=== PATIENT | male | born 1955 | race Hispanic/Latino ===

== ENCOUNTER 2016-12-10 15:10 | Inpatient (IN) | payer BC ==
[2016-12-10] MEDS ORDERED: Vancomycin 1gm in NS 250ml 1 GM/250 ML BAG IVPB STA (15:56)
[2016-12-10] MEDS ORDERED: Piperacillin/Tazobact 3.375 gm 100 ML IVPB STA (15:57)
[2016-12-10] MEDS ORDERED: Insulin Reg-MEDIUM-Coverage IV STA (15:57)
[2016-12-10] MEDS ORDERED: Sodium Chloride 0.9% 1,000 ML IV STA ×2 (15:58→16:55)
[2016-12-10] MEDS ORDERED: Insulin Regular 1 UNITS/0.01 ML ML IV STA (16:01)
[2016-12-10 16:19] LABS: ADD MANUAL DIFF? NO
--- NOTE | 2016-12-10 16:36 | ED PDOC ---
Arrival/HPI - General Chief Complaint: Abnormal Skin Integrity Time Seen by Provider: 12/10/16 15:37 Historian: Patient - History of Present Illness Narrative History of Present Illness (Text): 12/10/16 16:30 61yo morbidly obese male with PMHx of hypertension, diabetes referred to ED by Dr. Lucio for right foot cellulitis. Pt notes history of left foot ulcer. states foot became swollen, red and comfortable the past 2weeks with blister. He does not see a Inside Sales Territory Manager. Reports malaise and decrease appetite for the past few days. States he only took his Glipizide this morning, because he have had decreased appetite. He denies fever, chills, nausea, SOB, chest pain, cough , BUI, any other complaint. Past Medical History - Provider Review Nursing Documentation Reviewed: Yes - Infectious Disease Hx of Infectious Diseases: None - Tetanus Immunization Tetanus Immunization: Unknown - Cardiac Hx Cardiac Disorders: Yes Hx Hypertension: Yes - Pulmonary Hx Respiratory Disorders: No - Neurological Hx Neurological Disorder: No - HEENT Hx HEENT Disorder: No - Renal Hx Renal Disorder: No - Endocrine/Metabolic Hx Endocrine Disorders: Yes Hx Diabetes Mellitus Type 2: Yes - Hematological/Oncological Hx Blood Transfusions: No Hx Blood Transfusion Reaction: No - Integumentary Hx Dermatological Disorder: No - Musculoskeletal/Rheumatological Hx Musculoskeletal Disorders: No - Gastrointestinal Hx Gastrointestinal Disorders: No - Genitourinary/Gynecological Hx Genitourinary Disorders: No - Psychiatric Hx Psychophysiologic Disorder: No Hx Emotional Abuse: No Hx Physical Abuse: No Hx Substance Use: No - Past Surgical History Past Surgical History: No Previous - Surgical History Other/Comment: Pt has DVT in R leg with filter placement. Pt had R leg fracture with sx as well - Anesthesia Hx Anesthesia: Yes Hx Anesthesia Reactions: No Hx Malignant Hyperthermia: No - Suicidal Assessment Feels Threatened In Home Enviroment: No Family/Social History - Physician Review Nursing Documentation Reviewed: Yes Family/Social History: Unknown Family HX Smoking Status: Never Smoked Hx Substance Use: No Hx Substance Use Treatment: No Allergies/Home Meds Allergies/Adverse Reactions: Allergies No Known Allergies Allergy (Verified 12/10/16 15:14) Home Medications: Home Meds Medication Instructions Recorded Confirmed Lisinopril 5 mg PO DAILY 08/08/12 08/08/12 Carvedilol [Coreg Cr] 40 mg PO DAILY 12/10/16 12/10/16 Glimepiride [amaRYL] 4 mg PO BID 12/10/16 12/10/16 Linagliptin [Tradjenta] 5 mg PO DAILY 12/10/16 12/10/16 Vits A,C,E/Lutein/Minerals [Cvs 1 each PO DAILY 12/10/16 12/10/16 Vision Formula Tablet] Review of Systems - Physician Review All systems were reviewed & negative as marked: Yes - Review of Systems Constitutional: Normal Eyes: Normal ENT: Normal Respiratory: Normal Cardiovascular: Normal Gastrointestinal: Normal Genitourinary Male: Normal Musculoskeletal: Normal Skin: Cellulitis Neurological: Normal Endocrine: Normal Hemo/Lymphatic: Normal Psychiatric: Normal Physical Exam Vital Signs Reviewed: Yes Vital Signs Temp Pulse Resp BP Pulse Ox 12/10/16 21:11 101 H 16 125/80 98 12/10/16 18:53 98.6 F 103 H 18 122/73 94 L 12/10/16 16:34 98 H 18 101/68 97 12/10/16 15:22 98.0 F 108 H 18 99/64 L 97 Temperature: Afebrile Blood Pressure: Normal Pulse: Tachycardic Respiratory Rate: Normal Appearance: Positive for: Well-Appearing, Non-Toxic, Comfortable Pain Distress: None Mental Status: Positive for: Alert and Oriented X 3 Finger Stick Blood Glucose: 500 - Systems Exam Head: Present: Atraumatic, Normocephalic Pupils: Present: PERRL Extroacular Muscles: Present: EOMI Conjunctiva: Present: Normal Mouth: Present: Moist Mucous Membranes Neck: Present: Normal Range of Motion Respiratory/Chest: Present: Clear to Auscultation, Good Air Exchange. No: Respiratory Distress, Accessory Muscle Use Cardiovascular: Present: Regular Rate and Rhythm, Normal S1, S2. No: Murmurs Abdomen: Present: Normal Bowel Sounds. No: Tenderness, Distention, Peritoneal Signs Back: Present: Normal Inspection Upper Extremity: Present: Normal Inspection. No: Cyanosis, Edema Lower Extremity: Present: Edema (3+ pitting edema right LE), Normal ROM, Erythema, Temperature Abnormalties (Warm to touch), Other (Open blister noted on right dorsal aspect of foot and ulcer with clear margin noted on the plantar aspact). No: CALF TENDERNESS, NORMAL PULSES (Decrease pedis pulse - right foot) , Tenderness Neurological: Present: GCS=15, CN II-XII Intact, Speech Normal Skin: Present: Warm, Dry, Normal Color. No: Rashes Psychiatric: Present: Alert, Oriented x 3, Normal Insight, Normal Concentration Medical Decision Making ED Course and Treatment: 12/10/16 19:14 53yo male referred to ED by Dr. Gill for right foot cellulitis. Morbildy obese male aferbile in ED and appear hemodynamically stable. Right foot cellulitis was noted. He had leukocytosis and BS greater than 1,00. he had a gap. He was placed on IV insulin drip after a bolus and hydrated. Fixture Repairer Fabricator was notified. He saw pt and accepted pt to ICU. Case was DW Dr. Bojorquez. PT was admitted to ICU Chest xray - NAD EKG Pending Result and plan was DW both pt and the family members and they all agreed - Lab Interpretations Lab Results: 12/10/16 16:00 12/10/16 16:00 Lab Results 12/10/16 16:00: Sodium 130 L, Potassium 5.2 H, Chloride 92 L, Carbon Dioxide 17 L, Anion Gap 26 H, BUN 34 H, Creatinine 1.4, Est GFR ( Amer) > 60, Est GFR (Non-Af Amer) 51, Random Glucose 1182 H*, Calcium 10.0, Total Bilirubin 0.8 , AST 26, ALT 25, Alkaline Phosphatase 131, Total Protein 7.8, Albumin 3.8, Globulin 4.0, Albumin/Globulin Ratio 1.0 L 12/10/16 16:00: WBC 18.2 H, RBC 4.34, Hgb 12.4 L, Hct 42.6, MCV 98.2, MCH 28.6, MCHC 29.1 L, RDW 14.0, Plt Count 358, MPV 11.9 H, Gran % 89.9 H, Lymph % (Auto) 5.3 L, [place] % (Auto) 4.7, Eos % (Auto) 0.0 L, Baso % (Auto) 0.1, Gran # 16.31 H , Lymph # 1.0 L, [place] # 0.9 H, Eos # 0.0, Baso # 0.02 12/10/16 15:54: POC Glucose (mg/dL) > 500 H* - RAD Interpretation Radiology Orders: 12/10/16 15:47 CHEST PORTABLE [RAD] Stat - EKG Interpretation Interpreted by ED Physician: Yes (sinus tachy; RBB @102bpm) - Medication Orders Current Medication Orders: Heparin Sodium (Porcine) (Heparin) 5,000 units SC Q8 MALLORY PRN Reason: Protocol Last Admin: 12/10/16 23:00 Dose: 5,000 units Sodium Chloride (Sodium Chloride 0.9%) 1,000 mls @ 200 mls/hr IV .Q5H MALLORY Last Admin: 12/10/16 23:31 Dose: 200 mls/hr Meropenem 1g/NS 100mL IVPB (Meropenem 1g/Ns 100ml Ivpb) 1 gm in 100 mls @ 100 mls/hr IVPB Q8 MALLORY PRN Reason: Protocol Stop: 12/17/16 22:01 Last Admin: 12/10/16 23:00 Dose: 100 mls/hr Linezolid (Zyvox 600mg/300ml D5w) 600 mg in 300 mls @ 200 mls/hr IVPB Q12 MALLORY PRN Reason: Protocol Stop: 12/17/16 22:01 Last Admin: 12/10/16 23:30 Dose: 200 mls/hr Insulin Human Regular 100 (units/ Sodium Chloride) 100 mls @ 0 mls/hr IV .Q0M PRN; Protocol; Per Protocol PRN Reason: TITRATE PER MD ORDER Last Admin: 12/10/16 23:30 Dose: 12 ml/hr, 12 mls/hr Pantoprazole Sodium (Protonix Inj) 40 mg IVP DAILY MALLORY Discontinued Medications Sodium Chloride (Sodium Chloride 0.9%) 1,000 mls @ 999 mls/hr IV .Q1H1M STA Stop: 12/10/16 16:58 Last Admin: 12/10/16 16:43 Dose: 999 mls/hr Vancomycin HCl (Vancomycin 1gm) 1 gm in 250 mls @ 167 mls/hr IVPB STAT STA PRN Reason: Protocol Stop: 12/10/16 17:25 Last Admin: 12/10/16 18:54 Dose: 167 mls/hr Piperacillin Sod/Tazobactam Sod (Zosyn 3.375 In Ns 100ml) 100 mls @ 200 mls/hr IVPB STAT STA PRN Reason: Protocol Stop: 12/10/16 16:26 Last Admin: 12/10/16 16:43 Dose: 200 mls/hr Insulin Human Regular 100 (units/ Sodium Chloride) 100 mls @ 8 mls/hr IV .[id number] PRN; Protocol; 8 UNITS/HR PRN Reason: TITRATE PER MD ORDER Last Admin: 12/10/16 17:28 Dose: 8 units/hr, 8 mls/hr Sodium Chloride (Sodium Chloride 0.9%) 1,000 mls @ 999 mls/hr IV .Q1H1M STA Stop: 12/10/16 17:55 Last Admin: 12/10/16 17:23 Dose: 999 mls/hr Insulin Human Regular (Humulin R) 10 units IV ONCE STA PRN Reason: Protocol Stop: 12/10/16 16:02 Last Admin: 12/10/16 16:42 Dose: 10 units - Transfer of Care Pending radiology studies:: Chest xray NAD Disposition/Present on Arrival - Present on Arrival Any Indicators Present on Arrival: No History of DVT/PE: No History of Uncontrolled Diabetes: No Urinary Catheter: No History of Decub. Ulcer: Yes History Surgical Site Infection Following: None - Disposition Have Diagnosis and Disposition been Completed?: Yes Diagnosis: Cellulitis, Hyperglycemia, DKA (diabetic ketoacidoses), Obesity Disposition: HOSPITALIZED Disposition Time: 16:00 Patient Problems: Current Active Problems Problem Status Onset Cellulitis Acute DKA (diabetic ketoacidoses) Acute Hyperglycemia Acute Condition: FAIR
[2016-12-10 16:37] LABS: HEMATOCRIT 42.6 % (42.0-52.0); MEAN CELL VOLUME 98.2 fL (80.0-105.0); MEAN CORPUSCULAR HEMOGLOBIN 28.6 pg (25.0-35.0); MEAN CORPUSCULAR HGB CONC 29.1 g/dl (31.0-37.0); WHITE BLOOD COUNT 18.2 10^3/ul (4.5-11.0)
[2016-12-10 16:38] LABS: ALKALINE PHOSPHATASE 131 U/L (38-133); ALT/SGPT 25 U/L (7-56); AST/SGOT 26 U/L (15-59); BASO # 0.02 K/mm3 (0.0-2.0); BASO % 0.1 % (0.0-3.0); BILIRUBIN,TOTAL 0.8 mg/dL (0.2-1.3); BLOOD UREA NITROGEN 34 mg/dL (7-21); CARBON DIOXIDE 17 mmol/L (21-33); CHLORIDE 92 mmol/L (98-107); GFR AFRICAN-AMERICAN > 60; GRAN # 16.31 (1.4-6.5); GRAN % 89.9 % (50.0-68.0); LYMPH % 5.3 % (22.0-35.0); MEAN PLATELET VOLUME 11.9 fl (7.0-11.0); MONO # 0.9 (0.1-0.6); MONO % 4.7 % (1.0-6.0); PLATELET COUNT 358 10^3/uL (120.0-450.0); POTASSIUM 5.2 mmol/L (3.6-5.0); SODIUM 130 mmol/L (132-148); TOTAL PROTEIN 7.8 g/dL (5.8-8.3)
[2016-12-10 16:45] LABS: GLUCOSE,RANDOM 1182 mg/dL (70-110)
[2016-12-10] MEDS ORDERED: Insulin Regular 100 UNITS in Sodium Chloride 0.9% 99 ML IV PRN (16:52)
--- NOTE | 2016-12-10 17:03 | RAD ---
HISTORY: admission COMPARISON: Chest x-ray performed 08/16/12 TECHNIQUE: Chest, one view. FINDINGS: Examination limited by habitus. LUNGS: No focal consolidation. Please note that chest x-ray has limited sensitivity for the detection of pulmonary masses. PLEURA: No significant pleural effusion identified. No definite pneumothorax . CARDIOVASCULAR: Heart size appears top normal. OSSEOUS STRUCTURES: Degenerative changes. VISUALIZED UPPER ABDOMEN: Unremarkable. OTHER FINDINGS: None. IMPRESSION: No focal consolidation, significant pleural effusion, or definite pneumothorax identified.
[2016-12-10 17:12] LABS: VENOUS BLOOD GAS BASE EXCESS -8.3 mmol/L (0.0-2.0); VENOUS BLOOD PH 7.26 (7.32-7.43)
[2016-12-10] MEDS: Sodium Chloride 0.9% 1,000 ML IV SCH ×2 (18:54→23:31)
[2016-12-10 19:05] LABS: VENOUS BLOOD GAS BASE EXCESS -4.8 mmol/L (0.0-2.0); VENOUS BLOOD PH 7.32 (7.32-7.43)
[2016-12-10 19:26] LABS: BLOOD UREA NITROGEN 34 mg/dL (7-21); CALCIUM 9.5 mg/dL (8.4-10.5); CARBON DIOXIDE 20 mmol/L (21-33); CHLORIDE 99 mmol/L (98-107); GFR AFRICAN-AMERICAN > 60; POTASSIUM 4.6 mmol/L (3.6-5.0); SODIUM 133 mmol/L (132-148)
[2016-12-10 19:36] LABS: GLUCOSE,RANDOM 826 mg/dL (70-110)
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
--- NOTE | 2016-12-10 22:43 | CT ---
EXAM: CT Right Lower Extremity Without Intravenous Contrast, Foot CLINICAL HISTORY: 61 years old, male; Signs and symptoms; Cellulitis; Foot; Right; Additional info: Necrotizing fasciitis TECHNIQUE: Axial computed tomography images of the right foot without intravenous contrast. This CT exam was performed using one or more of the following dose reduction techniques: automated exposure control, adjustment of the mA and/or kV according to patient size, and/or use of iterative reconstruction technique. Coronal and sagittal reformatted images were created and reviewed. EXAM DATE/TIME: 12/10/2016 6:03 PM COMPARISON: No relevant prior studies available. FINDINGS: BONES/JOINTS: Calcaneal spurring. Bony structures appear demineralized. No acute fractures are seen. No evidence of acute dislocation. No evidence of significant lytic, destructive bony changes or aggressive periosteal reaction to suggest osteomyelitis. SOFT TISSUES: A cluster of multiple foci of soft tissue air are seen in the lateral soft tissues of the distal foot/forefoot, at the level of the fifth metatarsophalangeal joint, best seen on images 183-186 of series 2. This air extends to the skin surface, and appears located within a focal, triangular area of soft tissue density. Findings most likely represent a soft tissue ulceration associated with phlegmonous inflammation. This measures approximately 3 cm maximally. The associated air reaches to the deep soft tissues, directly abutting the fifth metatarsal head, consistent with a deep soft tissue ulceration. Marked, diffuse subcutaneous edema is seen in the right foot. There is no definite focal, measurable wall to suggest a walled off abscess. No evidence of diffuse soft tissue gas/emphysema. IMPRESSION: - Findings suspicious for a focal soft tissue ulceration associated with phlegmonous inflammation and air in the lateral soft tissues of the right forefoot, at the level of the fifth metatarsophalangeal joint. The soft tissue ulceration appears deep, with air seen extending to the level of the bone/the fifth metatarsal head. No walled off fluid collection is seen to suggest a philip abscess. No evidence of diffuse soft tissue gas. - Marked, diffuse soft tissue edema of the right foot, most likely secondary to diffuse cellulitis. - No findings to suggest osteomyelitis by CT. Note that MRI is more sensitive for detection of osteomyelitis, however. - See above for remaining findings.
[2016-12-10 22:45] LABS: VENOUS BLOOD GAS BASE EXCESS -0.8 mmol/L (0.0-2.0); VENOUS BLOOD PH 7.36 (7.32-7.43)
[2016-12-10 22:53] LABS: BLOOD UREA NITROGEN 33 mg/dL (7-21); CALCIUM 9.6 mg/dL (8.4-10.5); CARBON DIOXIDE 26 mmol/L (21-33); CHLORIDE 102 mmol/L (98-107); GFR AFRICAN-AMERICAN > 60; SODIUM 138 mmol/L (132-148)
[2016-12-10 23:00] LABS: GLUCOSE,RANDOM 584 mg/dL (70-110)
[2016-12-10] MEDS: Meropenem 1g/NS 100mL IVPB 1 GM/100 ML PIGGYBACK IVPB SCH (23:00)
--- NOTE | 2016-12-10 23:09 | CON ---
DATE: 12/10/2016 This is a 61-year-old gentleman with history of hypertension, diabetes who started having some right foot erythema about a month ago; however, it was mild and appeared to be controlled with local measures. About 3 days ago, the erythema substantially worsened overnight. It became warm and small bullae appeared on the surface. The right foot got swollen. The patient continued to try to contain the inflammation with local measures; however, it progressed. Today, patient went to his doctor, Dr. Desai, who sent patient to the Emergency Room immediately. Upon further evaluation here in the Emergency Room , the patient was found to have significant hyperglycemia and presumed diagnosis of DKA was made. The patient was started on insulin drip and 2 liters of normal saline as a bolus were given. Broad spectrum abx started PAST MEDICAL HISTORY: Hypertension, diabetes, obesity. FAMILY HISTORY: Noncontributory. The patient has never smoked. No alcohol or illicit drug abuse. MEDICATIONS AT HOME: Lisinopril, Coreg, Amaryl, Tradjenta, vitamin A, C and E. REVIEW OF SYSTEMS: Revealed 12 organ system other than mentioned in history of present illness is negative. No nausea, no vomiting, no diarrhea, no constipation. ALLERGIES: NKDA. FAMILY HISTORY: noncontributory. PHYSICAL EXAMINATION: VITAL SIGNS: Blood pressure 101/68, heart rate 98, temperature 98, oxygen saturation 97% on room air. HEAD AND NECK: Atraumatic. LUNGS: Clear to auscultation bilaterally. HEART: Regular rate and rhythm. S1, S2 normal. ABDOMEN: Soft, nontender, nondistended. MUSCULOSKELETAL: Right foot swollen, erythematous and not tender on palpation. There are some calluses present on both surfaces of the foot. SKIN: Moist. PSYCHIATRIC: The patient is alert and oriented x 3, not in distress. LABORATORY DATA: Sodium 130, potassium 5.2, chloride 92, carbon dioxide 17, BUN 34, creatinine 1.4, glucose 1182, AST 26, ALT 25. WBC 18.2, hemoglobin 12.4 , platelet count 358. VBG showed lactic acid 3.4 and pH 7.26. ASSESSMENT AND PLAN: This is a 61-year-old gentleman with severe sepsis secondary to right foot cellulitis. The patient has diabetes thus absence of pain and tenderness does not rule out possibility of deep tissue infection. I will proceed with CAT scan of the right lower extremity to rule out necrotizing fasciitis. I will proceed with a blood culture, urine culture and procalcitonin. The patient received a dose of vancomycin and I will continue with that. The patient also received a dose of Zosyn. ID consult will be requested, surgical consult will be requested. I will continue with fluid resuscitation, insulin drip. I will continue with BMP every 4 hours and Accu- Chek every 1 hour. Once anion gap closed, I will switch insulin drip to longer acting subQ formulation of insulin. I will avoid hypoglycemia. I will continue to target euvolemia, euglycemia, normothermia and oxygen saturation 90% . I will continue with deep venous thrombosis and gastrointestinal prophylaxis. I will order IgA level in case if necrotizing fasciitis or toxic shock syndrome develops which may necessitate transfusion of immunoglobulin. I will continue with deep venous thrombosis and gastrointestinal prophylaxis. ccm time 40 min Eb Clemente MD cc: [id number] TT: 12/10/2016 23:08:26 Confirmation # [id number] Dictation # [id number] MTDD
[2016-12-10] MEDS: Linezolid 600 mg in D5W 300 ml 600 MG/300 ML BAG IVPB SCH (23:30)
[2016-12-10] MEDS: Insulin Regular 100 UNITS in Sodium Chloride 0.9% 99 ML IV PRN (23:30)
[2016-12-11 00:58] VITALS: BMI 34.6
[2016-12-11] MEDS: Insulin Regular 100 UNITS in Sodium Chloride 0.9% 99 ML IV PRN ×2 (01:55→03:17)
[2016-12-11] MEDS ORDERED: Insulin Regular 100 UNITS in Sodium Chloride 0.9% 99 ML IV PRN ×2 (02:15→04:55)
[2016-12-11] MEDS ORDERED: Vancomycin 1gm in NS 250ml 1 GM/250 ML BAG IVPB SCH (03:00)
[2016-12-11] MEDS: Meropenem 1g/NS 100mL IVPB 1 GM/100 ML PIGGYBACK IVPB SCH ×2 (05:06→14:34)
[2016-12-11 06:44] LABS: ADD MANUAL DIFF? NO
[2016-12-11 06:58] LABS: VENOUS BLOOD PH 7.38 (7.32-7.43)
[2016-12-11] MEDS: Dextrose 5%/0.45% NS 1,000 ML IV SCH ×2 (07:00→14:43)
[2016-12-11 07:28] LABS: BLOOD UREA NITROGEN 28 mg/dL (7-21); CALCIUM 9.7 mg/dL (8.4-10.5); CARBON DIOXIDE 30 mmol/L (21-33); CHLORIDE 110 mmol/L (98-107); GFR AFRICAN-AMERICAN > 60; GLUCOSE,RANDOM 154 mg/dL (70-110); POTASSIUM 3.6 mmol/L (3.6-5.0); SODIUM 144 mmol/L (132-148)
[2016-12-11] MEDS ORDERED: Insulin Detemir 100 units/ml Vial (Levemir) SC SCH (08:16)
[2016-12-11] MEDS ORDERED: Insulin Detemir 100 units/ml Vial (Levemir) SC ONE ×3 (08:18→22:00)
[2016-12-11 08:34] LABS: MAGNESIUM 2.6 mg/dL (1.7-2.2); PHOSPHOROUS 2.4 mg/dL (2.5-4.5)
[2016-12-11 08:35] LABS: BASO # 0.02 K/mm3 (0.0-2.0); BASO % 0.1 % (0.0-3.0); EOS % 0.1 % (1.5-5.0); GRAN # 13.58 (1.4-6.5); GRAN % 81.8 % (50.0-68.0); LYMPH # 0.8 (1.2-3.4); MEAN CELL VOLUME 85.4 fL (80.0-105.0); MEAN CORPUSCULAR HEMOGLOBIN 28.4 pg (25.0-35.0); MEAN CORPUSCULAR HGB CONC 33.2 g/dl (31.0-37.0); MEAN PLATELET VOLUME 11.6 fl (7.0-11.0); MONO # 2.2 (0.1-0.6); PLATELET COUNT 328 10^3/uL (120.0-450.0); RED CELL DISTRIBUTION WIDTH 13.5 % (11.5-14.5); WHITE BLOOD COUNT 16.6 10^3/ul (4.5-11.0)
--- NOTE | 2016-12-11 09:38 | CP.PCM.PN ---
Subjective - Date & Time of Evaluation Date of Evaluation: 12/11/16 Time of Evaluation: 07:00 - Subjective Subjective: General Surgery Progress Note for Dr. Jennings Pt was seen and examined at bedside. No acute complaints at this time. No acute or adverse events overnight as per nursing staff. Insulin drip has been stopped and an insulin regimen has been started. Pt denies RLE pain, fever, chill, n/v. Objective - Vital Signs/Intake and Output Vital Signs (last 24 hours): Temp Pulse Resp BP Pulse Ox 98 F 88 23 139/69 89 L 12/10/16 23:00 12/11/16 07:30 12/11/16 07:30 12/11/16 07:00 12/11/16 07:30 Intake and Output: 12/11/16 12/11/16 06:59 18:59 Intake Total 201 4004 Output Total 700 Balance 201 3304 - Medications Medications: Current Medications Heparin Sodium (Porcine) (Heparin) 5,000 units SC Q8 MALLORY PRN Reason: Protocol Last Admin: 12/11/16 05:01 Dose: 5,000 units Meropenem 1g/NS 100mL IVPB (Meropenem 1g/Ns 100ml Ivpb) 1 gm in 100 mls @ 100 mls/hr IVPB Q8 MALLORY PRN Reason: Protocol Stop: 12/17/16 22:01 Last Admin: 12/11/16 05:06 Dose: 100 mls/hr Linezolid (Zyvox 600mg/300ml D5w) 600 mg in 300 mls @ 200 mls/hr IVPB Q12 MALLORY PRN Reason: Protocol Stop: 12/17/16 22:01 Last Admin: 12/10/16 23:30 Dose: 200 mls/hr Insulin Human Regular 100 (units/ Sodium Chloride) 100 mls @ 4 mls/hr IV .Q24H PRN; Protocol; Per Protocol PRN Reason: TITRATE PER MD ORDER Last Titration: 12/11/16 08:11 Dose: 5 units/hr, 5 mls/hr Dextrose/Sodium Chloride (Dextrose 5%/0.45% Ns 1000 Ml) 1,000 mls @ 150 mls/hr IV .Q6H40M MALLORY Last Admin: 12/11/16 07:00 Dose: 150 mls/hr Insulin Human Regular (Humulin R Med) 0 units SC Q6H MALLORY PRN Reason: Protocol Pantoprazole Sodium (Protonix Inj) 40 mg IVP DAILY MALLORY - Labs Labs: 12/11/16 06:30 12/11/16 06:30 - Constitutional Appears: Well, No Acute Distress - Head Exam Head Exam: ATRAUMATIC, NORMAL INSPECTION, NORMOCEPHALIC - Eye Exam Eye Exam: EOMI, Normal appearance, PERRL Pupil Exam: NORMAL ACCOMODATION, PERRL - ENT Exam ENT Exam: Mucous Membranes Moist, Normal Exam - Neck Exam Neck Exam: Full ROM, Normal Inspection. absent: Lymphadenopathy - Respiratory Exam Respiratory Exam: Clear to Ausculation Bilateral, NORMAL BREATHING PATTERN - Cardiovascular Exam Cardiovascular Exam: REGULAR RHYTHM, +S1, +S2. absent: Murmur - GI/Abdominal Exam GI & Abdominal Exam: Soft, Normal Bowel Sounds. absent: Tenderness - Extremities Exam Extremities Exam: Pedal Edema (+3 erythema, RLE ulcers ) - Neurological Exam Neurological Exam: Alert, Awake, CN II-XII Intact, Oriented x3 - Psychiatric Exam Psychiatric exam: Normal Affect, Normal Mood - Skin Skin Exam: Dry, Intact, Normal Color, Warm Assessment and Plan - Assessment and Plan (Free Text) Assessment: 61 M with DKA and RLE cellulitis - CT of the R lower extremity showed focal soft tissue ulceration with phlegmonous inflammation and air in the lateral soft tissues at the 5th metatarsophalangeal joint to the level of bone but without sign of abscess or osteomyelitis. - Podiatry Consulted, fu recs - Consider MRI, picc line for potential OM - f/u Wound Cx - IV Abx per ID, zyvox and merrem - strict glucose monitoring and control per ICU - cont medical management Seen reviewed and discussed with Attending Shereen Patel PGY-1
[2016-12-11] MEDS ORDERED: Potassium Phosphate 30 MMOLE in Dextrose 5% In Water 250 ML IVPB ONE (09:55)
[2016-12-11] MEDS: Linezolid 600 mg in D5W 300 ml 600 MG/300 ML BAG IVPB SCH ×2 (10:03→23:40)
[2016-12-11] MEDS: Insulin Reg-MEDIUM-Coverage SC SCH ×3 (10:03→23:39)
--- NOTE | 2016-12-11 10:03 | CARD ---
APPROVED REPORT EKG Measurement Heart [id number] <Conclusion> Sinus tachycardia Right bundle branch block Abnormal ECG
--- NOTE | 2016-12-11 10:20 | CP.CCUPN ---
<Melonie Mercer - Last Filed: 12/11/16 17:28> CCU Subjective - Physician Review Events Since Last Encounter (Free Text): 12/11/16 10:10 Pt s/e at bedside this AM. Patient is in the ICU for monitoring and treatment of his DKA and is also being treated for R lower leg/foot cellulitis. CT of the R lower extremity showed focal soft tissue ulceration with phlegmonous inflammation and air in the lateral soft tissues at the 5th metatarsophalangeal joint to the level of bone but without sign of abscess or osteomyelitis. Today patient's anion gap is closed and his blood sugars are well controlled. Patient reports chronic numbness in the bilateral feet. This AM patient denies any pain in the foot, fevers, chills, CP, SOB, abdominal pain, nausea, or vomiting, dysuria, hematuria, diarrhea, or constipation. Patient reports recent polyuria. Patient is very hungry and is upset he has to wait to eat food CCU Objective - Vital Signs / Intake & Output Vital Signs (Last 4 hours): Vital Signs Pulse Resp BP Pulse Ox 12/11/16 07:30 88 23 89 L 12/11/16 07:20 91 H 17 92 L 12/11/16 07:10 89 27 H 93 L 12/11/16 07:00 88 28 H 139/69 93 L 12/11/16 06:50 85 14 93 L 12/11/16 06:40 89 89 L 12/11/16 06:30 87 25 H 91 L 12/11/16 06:20 88 27 H 91 L 12/11/16 06:10 87 63 H 94 L Intake and Output (Last 8hrs): Intake & Output 12/10/16 12/11/16 12/11/16 22:59 06:59 14:59 Intake Total 201 4004 Output Total 700 Balance 201 3304 Weight 125.645 kg Intake: IV 201 2003 Right Forearm 1999 Other 1999 Output: Urine 700 Urine, Voided 700 Other: Voiding Method Urinal # Bowel Movements 0 - Physical Exam Head: Positive for: Atraumatic, Normocephalic Pupils: Positive for: PERRL Extroacular Muscles: Positive for: EOMI Conjunctiva: Positive for: Normal Mouth: Positive for: Dry Pharnyx: Positive for: Normal Nose (External): Positive for: Atraumatic. Negative for: Abrasion, Contusion Neck: Positive for: Normal Range of Motion Respiratory/Chest: Positive for: Clear to Auscultation, Good Air Exchange. Negative for: Respiratory Distress, Accessory Muscle Use Cardiovascular: Positive for: Regular Rate and Rhythm, Normal S1, S2. Negative for: Murmurs Abdomen: Positive for: Normal Bowel Sounds. Negative for: Tenderness, Distention, Peritoneal Signs Back: Positive for: Normal Inspection Upper Extremity: Positive for: Normal Inspection. Negative for: Cyanosis, Edema Lower Extremity: Positive for: Edema (3+ pitting edema right LE), Normal ROM, Erythema (extending to distal lower leg), Temperature Abnormalties (Warm to touch), Other (Several bullae of the lateral foot, several open, with an intact bullae over the dorsal surface of the base of the 5th metatarsal. ulcer with clear margin noted on the plantar aspect). Negative for: CALF TENDERNESS, NORMAL PULSES (Decrease pedis pulse - right foot), Tenderness Neurological: Positive for: GCS=15, CN II-XII Intact, Speech Normal Skin: Positive for: Warm, Dry, Normal Color. Negative for: Rashes Psychiatric: Positive for: Alert, Oriented x 3, Normal Insight, Normal Concentration - Medications Active Medications: Active Medications Generic Name Dose Route Start Last Admin Trade Name Freq PRN Reason Stop Dose Admin Heparin Sodium (Porcine) 5,000 units 12/10/16 22:00 12/11/16 05:01 Heparin SC 5,000 units Q8 MALLORY Administration Protocol Meropenem 1g/NS 100mL IVPB 1 gm in 100 mls @ 100 mls/hr 12/10/16 22:00 05:06 Meropenem 1g/Ns 100ml Ivpb IVPB 12/17/16 22:01 100 mls/hr Q8 MALLORY Administration Protocol Linezolid 600 mg in 300 mls @ 200 mls/hr 12/10/16 22:00 12/10/16 23:30 Zyvox 600mg/300ml D5w IVPB 12/17/16 22:01 200 mls/hr Q12 MALLORY Administration Protocol Insulin Human Regular 100 100 mls @ 4 mls/hr 12/11/16 04:55 12/11/16 08:11 units/ Sodium Chloride IV 5 units/hr .Q24H PRN 5 mls/hr TITRATE PER MD ORDER Titration Protocol Per Protocol Dextrose/Sodium Chloride 1,000 mls @ 150 mls/hr 12/11/16 06:00 12/11/16 07:00 Dextrose 5%/0.45% Ns 1000 Ml IV 150 mls/hr .[id number] MALLORY Administration Potassium Phosphate 30 mmole/ 260 mls @ 42.5 mls/hr 12/11/16 09:55 Dextrose IVPB 12/11/16 16:02 ONCE ONE Insulin Human Regular 0 units 12/11/16 09:30 Humulin R Med SC Q6H [facility] Protocol Pantoprazole Sodium 40 mg 12/11/16 10:00 Protonix Inj IVP DAILY MALLORY - Patient Studies Lab Studies: Lab Studies 12/11/16 12/11/16 12/11/16 Range/Units 09:48 08:08 06:57 WBC (4.5-11.0) 10^3/ul RBC (3.5-6.1) 10^6/uL Hgb (14.0-18.0) gm/dL Hct (42.0-52.0) % MCV (80.0-105.0) fL MCH (25.0-35.0) pg MCHC (31.0-37.0) g/dl RDW (11.5-14.5) % Plt Count (120.0-450.0) 10^3/uL MPV (7.0-11.0) fl Gran % (50.0-68.0) % Lymph % (Auto) (22.0-35.0) % [place] % (Auto) (1.0-6.0) % Eos % (Auto) (1.5-5.0) % Baso % (Auto) (0.0-3.0) % Gran # (1.4-6.5) Lymph # (1.2-3.4) [place] # (0.1-0.6) Eos # (0.0-0.7) Baso # (0.0-2.0) K/mm3 pO2 (30-55) mm/Hg VBG pH (7.32-7.43) VBG pCO2 (40-60) VBG HCO3 (21-28) mmol/l VBG Total CO2 (22-28) mmol.L VBG O2 Sat (Calc) (40-65) % VBG Base Excess (0.0-2.0) mmol/L VBG Potassium (3.6-5.2) mmol/L Sodium (132-148) mmol/L Chloride (98-107) mmol/L Glucose (75-110) mg/dl Lactate (0.7-2.1) mmol/L FiO2 % Potassium (3.6-5.0) mmol/L Carbon Dioxide (21-33) mmol/L Anion Gap (10-20) BUN (7-21) mg/dL Creatinine (0.5-1.4) mg/dL Est GFR ( Amer) Est GFR (Non-Af Amer) POC Glucose (mg/dL) 275 H 201 H 171 H (65-110) mg/dL Random Glucose (70-110) mg/dL Calcium (8.4-10.5) mg/dL Phosphorus (2.5-4.5) mg/dL Magnesium (1.7-2.2) mg/dL Procalcitonin (0.19-0.49) NG/ML Venous Blood Potassium (3.6-5.2) mmol/L IgA (70.0-400.0) mg/dL 12/11/16 12/11/16 12/11/16 Range/Units 06:30 06:30 06:30 WBC 16.6 H (4.5-11.0) 10^3/ul RBC 3.98 (3.5-6.1) 10^6/uL Hgb 11.3 L (14.0-18.0) gm/dL Hct 34.0 L (42.0-52.0) % MCV 85.4 (80.0-105.0) fL MCH 28.4 (25.0-35.0) pg MCHC 33.2 (31.0-37.0) g/dl RDW 13.5 (11.5-14.5) % Plt Count 328 (120.0-450.0) 10^3/uL MPV 11.6 H (7.0-11.0) fl Gran % 81.8 H (50.0-68.0) % Lymph % (Auto) 5.0 L (22.0-35.0) % [place] % (Auto) 13.0 H (1.0-6.0) % Eos % (Auto) 0.1 L (1.5-5.0) % Baso % (Auto) 0.1 (0.0-3.0) % Gran # 13.58 H (1.4-6.5) Lymph # 0.8 L (1.2-3.4) [place] # 2.2 H (0.1-0.6) Eos # 0.0 (0.0-0.7) Baso # 0.02 (0.0-2.0) K/mm3 pO2 67 H (30-55) mm/Hg VBG pH 7.38 (7.32-7.43) VBG pCO2 47.0 (40-60) VBG HCO3 27.8 (21-28) mmol/l VBG Total CO2 29.2 H (22-28) mmol.L VBG O2 Sat (Calc) 96.2 H (40-65) % VBG Base Excess 2.0 (0.0-2.0) mmol/L VBG Potassium 3.7 (3.6-5.2) mmol/L Sodium 143.0 (132-148) mmol/L Chloride 115.0 H (98-107) mmol/L Glucose 155 H (75-110) mg/dl Lactate 1.7 (0.7-2.1) mmol/L FiO2 21.0 % Potassium (3.6-5.0) mmol/L Carbon Dioxide (21-33) mmol/L Anion Gap (10-20) BUN (7-21) mg/dL Creatinine (0.5-1.4) mg/dL Est GFR ( Amer) Est GFR (Non-Af Amer) POC Glucose (mg/dL) (65-110) mg/dL Random Glucose (70-110) mg/dL Calcium (8.4-10.5) mg/dL Phosphorus 2.4 L (2.5-4.5) mg/dL Magnesium 2.6 H (1.7-2.2) mg/dL Procalcitonin (0.19-0.49) NG/ML Venous Blood Potassium 3.7 (3.6-5.2) mmol/L IgA (70.0-400.0) mg/dL 12/11/16 12/11/16 12/11/16 Range/Units 06:30 06:20 04:47 WBC (4.5-11.0) 10^3/ul RBC (3.5-6.1) 10^6/uL Hgb (14.0-18.0) gm/dL Hct (42.0-52.0) % MCV (80.0-105.0) fL MCH (25.0-35.0) pg MCHC (31.0-37.0) g/dl RDW (11.5-14.5) % Plt Count (120.0-450.0) 10^3/uL MPV (7.0-11.0) fl Gran % (50.0-68.0) % Lymph % (Auto) (22.0-35.0) % [place] % (Auto) (1.0-6.0) % Eos % (Auto) (1.5-5.0) % Baso % (Auto) (0.0-3.0) % Gran # (1.4-6.5) Lymph # (1.2-3.4) [place] # (0.1-0.6) Eos # (0.0-0.7) Baso # (0.0-2.0) K/mm3 pO2 (30-55) mm/Hg VBG pH (7.32-7.43) VBG pCO2 (40-60) VBG HCO3 (21-28) mmol/l VBG Total CO2 (22-28) mmol.L VBG O2 Sat (Calc) (40-65) % VBG Base Excess (0.0-2.0) mmol/L VBG Potassium (3.6-5.2) mmol/L Sodium 144 (132-148) mmol/L Chloride 110 H (98-107) mmol/L Glucose (75-110) mg/dl Lactate (0.7-2.1) mmol/L FiO2 % Potassium 3.6 (3.6-5.0) mmol/L Carbon Dioxide 30 (21-33) mmol/L Anion Gap 8 L (10-20) BUN 28 H (7-21) mg/dL Creatinine 1.0 (0.5-1.4) mg/dL Est GFR ( Amer) > 60 Est GFR (Non-Af Amer) > 60 POC Glucose (mg/dL) 182 H 159 H (65-110) mg/dL Random Glucose 154 H (70-110) mg/dL Calcium 9.7 (8.4-10.5) mg/dL Phosphorus (2.5-4.5) mg/dL Magnesium (1.7-2.2) mg/dL Procalcitonin (0.19-0.49) NG/ML Venous Blood Potassium (3.6-5.2) mmol/L IgA (70.0-400.0) mg/dL 12/11/16 12/11/16 12/11/16 Range/Units 04:02 03:03 01:57 WBC (4.5-11.0) 10^3/ul RBC (3.5-6.1) 10^6/uL Hgb (14.0-18.0) gm/dL Hct (42.0-52.0) % MCV (80.0-105.0) fL MCH (25.0-35.0) pg MCHC (31.0-37.0) g/dl RDW (11.5-14.5) % Plt Count (120.0-450.0) 10^3/uL MPV (7.0-11.0) fl Gran % (50.0-68.0) % Lymph % (Auto) (22.0-35.0) % [place] % (Auto) (1.0-6.0) % Eos % (Auto) (1.5-5.0) % Baso % (Auto) (0.0-3.0) % Gran # (1.4-6.5) Lymph # (1.2-3.4) [place] # (0.1-0.6) Eos # (0.0-0.7) Baso # (0.0-2.0) K/mm3 pO2 (30-55) mm/Hg VBG pH (7.32-7.43) VBG pCO2 (40-60) VBG HCO3 (21-28) mmol/l VBG Total CO2 (22-28) mmol.L VBG O2 Sat (Calc) (40-65) % VBG Base Excess (0.0-2.0) mmol/L VBG Potassium (3.6-5.2) mmol/L Sodium (132-148) mmol/L Chloride (98-107) mmol/L Glucose (75-110) mg/dl Lactate (0.7-2.1) mmol/L FiO2 % Potassium (3.6-5.0) mmol/L Carbon Dioxide (21-33) mmol/L Anion Gap (10-20) BUN (7-21) mg/dL Creatinine (0.5-1.4) mg/dL Est GFR ( Amer) Est GFR (Non-Af Amer) POC Glucose (mg/dL) 212 H 225 H 441 H* (65-110) mg/dL Random Glucose (70-110) mg/dL Calcium (8.4-10.5) mg/dL Phosphorus (2.5-4.5) mg/dL Magnesium (1.7-2.2) mg/dL Procalcitonin (0.19-0.49) NG/ML Venous Blood Potassium (3.6-5.2) mmol/L IgA (70.0-400.0) mg/dL 12/11/16 12/10/16 12/10/16 Range/Units 01:02 23:57 22:42 WBC (4.5-11.0) 10^3/ul RBC (3.5-6.1) 10^6/uL Hgb (14.0-18.0) gm/dL Hct (42.0-52.0) % MCV (80.0-105.0) fL MCH (25.0-35.0) pg MCHC (31.0-37.0) g/dl RDW (11.5-14.5) % Plt Count (120.0-450.0) 10^3/uL MPV (7.0-11.0) fl Gran % (50.0-68.0) % Lymph % (Auto) (22.0-35.0) % [place] % (Auto) (1.0-6.0) % Eos % (Auto) (1.5-5.0) % Baso % (Auto) (0.0-3.0) % Gran # (1.4-6.5) Lymph # (1.2-3.4) [place] # (0.1-0.6) Eos # (0.0-0.7) Baso # (0.0-2.0) K/mm3 pO2 21 L (30-55) mm/Hg VBG pH 7.36 (7.32-7.43) VBG pCO2 44.0 (40-60) VBG HCO3 24.9 (21-28) mmol/l VBG Total CO2 26.3 (22-28) mmol.L VBG O2 Sat (Calc) 42.3 (40-65) % VBG Base Excess -0.8 L (0.0-2.0) mmol/L VBG Potassium 4.1 (3.6-5.2) mmol/L Sodium 139.0 (132-148) mmol/L Chloride 106.0 (98-107) mmol/L Glucose 458 H* D (75-110) mg/dl Lactate 3.2 H (0.7-2.1) mmol/L FiO2 21.0 % Potassium (3.6-5.0) mmol/L Carbon Dioxide (21-33) mmol/L Anion Gap (10-20) BUN (7-21) mg/dL Creatinine (0.5-1.4) mg/dL Est GFR ( Amer) Est GFR (Non-Af Amer) POC Glucose (mg/dL) 495 H* 397 H (65-110) mg/dL Random Glucose (70-110) mg/dL Calcium (8.4-10.5) mg/dL Phosphorus (2.5-4.5) mg/dL Magnesium (1.7-2.2) mg/dL Procalcitonin (0.19-0.49) NG/ML Venous Blood Potassium 4.1 (3.6-5.2) mmol/L IgA (70.0-400.0) mg/dL 12/10/16 12/10/16 12/10/16 Range/Units 22:42 22:01 21:16 WBC (4.5-11.0) 10^3/ul RBC (3.5-6.1) 10^6/uL Hgb (14.0-18.0) gm/dL Hct (42.0-52.0) % MCV (80.0-105.0) fL MCH (25.0-35.0) pg MCHC (31.0-37.0) g/dl RDW (11.5-14.5) % Plt Count (120.0-450.0) 10^3/uL MPV (7.0-11.0) fl Gran % (50.0-68.0) % Lymph % (Auto) (22.0-35.0) % [place] % (Auto) (1.0-6.0) % Eos % (Auto) (1.5-5.0) % Baso % (Auto) (0.0-3.0) % Gran # (1.4-6.5) Lymph # (1.2-3.4) [place] # (0.1-0.6) Eos # (0.0-0.7) Baso # (0.0-2.0) K/mm3 pO2 (30-55) mm/Hg VBG pH (7.32-7.43) VBG pCO2 (40-60) VBG HCO3 (21-28) mmol/l VBG Total CO2 (22-28) mmol.L VBG O2 Sat (Calc) (40-65) % VBG Base Excess (0.0-2.0) mmol/L VBG Potassium (3.6-5.2) mmol/L Sodium 138 (132-148) mmol/L Chloride 102 (98-107) mmol/L Glucose (75-110) mg/dl Lactate (0.7-2.1) mmol/L FiO2 % Potassium 4.0 (3.6-5.0) mmol/L Carbon Dioxide 26 (21-33) mmol/L Anion Gap 14 (10-20) BUN 33 H (7-21) mg/dL Creatinine 1.2 (0.5-1.4) mg/dL Est GFR ( Amer) > 60 Est GFR (Non-Af Amer) > 60 POC Glucose (mg/dL) 500 H* > 500 H* (65-110) mg/dL Random Glucose 584 H* D (70-110) mg/dL Calcium 9.6 (8.4-10.5) mg/dL Phosphorus (2.5-4.5) mg/dL Magnesium (1.7-2.2) mg/dL Procalcitonin (0.19-0.49) NG/ML Venous Blood Potassium (3.6-5.2) mmol/L IgA (70.0-400.0) mg/dL 12/10/16 12/10/16 12/10/16 Range/Units 18:45 18:45 18:45 WBC (4.5-11.0) 10^3/ul RBC (3.5-6.1) 10^6/uL Hgb (14.0-18.0) gm/dL Hct (42.0-52.0) % MCV (80.0-105.0) fL MCH (25.0-35.0) pg MCHC (31.0-37.0) g/dl RDW (11.5-14.5) % Plt Count (120.0-450.0) 10^3/uL MPV (7.0-11.0) fl Gran % (50.0-68.0) % Lymph % (Auto) (22.0-35.0) % [place] % (Auto) (1.0-6.0) % Eos % (Auto) (1.5-5.0) % Baso % (Auto) (0.0-3.0) % Gran # (1.4-6.5) Lymph # (1.2-3.4) [place] # (0.1-0.6) Eos # (0.0-0.7) Baso # (0.0-2.0) K/mm3 pO2 52 (30-55) mm/Hg VBG pH 7.32 (7.32-7.43) VBG pCO2 41.0 (40-60) VBG HCO3 21.1 (21-28) mmol/l VBG Total CO2 22.4 (22-28) mmol.L VBG O2 Sat (Calc) 89.8 H (40-65) % VBG Base Excess -4.8 L (0.0-2.0) mmol/L VBG Potassium 4.9 (3.6-5.2) mmol/L Sodium 134.0 (132-148) mmol/L Chloride 101.0 (98-107) mmol/L Glucose > 750 H* (75-110) mg/dl Lactate 3.2 H (0.7-2.1) mmol/L FiO2 21.0 % Potassium (3.6-5.0) mmol/L Carbon Dioxide (21-33) mmol/L Anion Gap (10-20) BUN (7-21) mg/dL Creatinine (0.5-1.4) mg/dL Est GFR ( Amer) Est GFR (Non-Af Amer) POC Glucose (mg/dL) (65-110) mg/dL Random Glucose (70-110) mg/dL Calcium (8.4-10.5) mg/dL Phosphorus (2.5-4.5) mg/dL Magnesium (1.7-2.2) mg/dL Procalcitonin 2.53 H (0.19-0.49) NG/ML Venous Blood Potassium 4.9 (3.6-5.2) mmol/L IgA 462.3 H (70.0-400.0) mg/dL 12/10/16 12/10/16 Range/Units 18:45 17:04 WBC (4.5-11.0) 10^3/ul RBC (3.5-6.1) 10^6/uL Hgb (14.0-18.0) gm/dL Hct (42.0-52.0) % MCV (80.0-105.0) fL MCH (25.0-35.0) pg MCHC (31.0-37.0) g/dl RDW (11.5-14.5) % Plt Count (120.0-450.0) 10^3/uL MPV (7.0-11.0) fl Gran % (50.0-68.0) % Lymph % (Auto) (22.0-35.0) % [place] % (Auto) (1.0-6.0) % Eos % (Auto) (1.5-5.0) % Baso % (Auto) (0.0-3.0) % Gran # (1.4-6.5) Lymph # (1.2-3.4) [place] # (0.1-0.6) Eos # (0.0-0.7) Baso # (0.0-2.0) K/mm3 pO2 50 (30-55) mm/Hg VBG pH 7.26 L (7.32-7.43) VBG pCO2 41.0 (40-60) VBG HCO3 18.4 L (21-28) mmol/l VBG Total CO2 19.7 L (22-28) mmol.L VBG O2 Sat (Calc) 84.7 H (40-65) % VBG Base Excess -8.3 L (0.0-2.0) mmol/L VBG Potassium 5.1 (3.6-5.2) mmol/L Sodium 133 134.0 (132-148) mmol/L Chloride 99 95.0 L (98-107) mmol/L Glucose > 750 H* (75-110) mg/dl Lactate 3.4 H (0.7-2.1) mmol/L FiO2 21.0 % Potassium 4.6 (3.6-5.0) mmol/L Carbon Dioxide 20 L (21-33) mmol/L Anion Gap 19 (10-20) BUN 34 H (7-21) mg/dL Creatinine 1.2 (0.5-1.4) mg/dL Est GFR ( Amer) > 60 Est GFR (Non-Af Amer) > 60 POC Glucose (mg/dL) (65-110) mg/dL Random Glucose 826 H* D (70-110) mg/dL Calcium 9.5 (8.4-10.5) mg/dL Phosphorus (2.5-4.5) mg/dL Magnesium (1.7-2.2) mg/dL Procalcitonin (0.19-0.49) NG/ML Venous Blood Potassium 5.1 (3.6-5.2) mmol/L IgA (70.0-400.0) mg/dL Laboratory Results - last 24 hr 12/10/16 12/10/16 12/10/16 17:04 18:45 18:45 WBC RBC Hgb Hct MCV MCH MCHC RDW Plt Count MPV Gran % Lymph % (Auto) [place] % (Auto) Eos % (Auto) Baso % (Auto) Gran # Lymph # [place] # Eos # Baso # pO2 50 VBG pH 7.26 L VBG pCO2 41.0 VBG HCO3 18.4 L VBG Total CO2 19.7 L VBG O2 Sat (Calc) 84.7 H VBG Base Excess -8.3 L VBG Potassium 5.1 Sodium 134.0 133 Chloride 95.0 L 99 Glucose > 750 H* Lactate 3.4 H FiO2 21.0 Potassium 4.6 Carbon Dioxide 20 L Anion Gap 19 BUN 34 H Creatinine 1.2 Est GFR ( Amer) > 60 Est GFR (Non-Af Amer) > 60 POC Glucose (mg/dL) Random Glucose 826 H* D Calcium 9.5 Phosphorus Magnesium Procalcitonin Venous Blood Potassium 5.1 IgA 462.3 H 12/10/16 12/10/16 12/10/16 18:45 18:45 21:16 WBC RBC Hgb Hct MCV MCH MCHC RDW Plt Count MPV Gran % Lymph % (Auto) [place] % (Auto) Eos % (Auto) Baso % (Auto) Gran # Lymph # [place] # Eos # Baso # pO2 52 VBG pH 7.32 VBG pCO2 41.0 VBG HCO3 21.1 VBG Total CO2 22.4 VBG O2 Sat (Calc) 89.8 H VBG Base Excess -4.8 L VBG Potassium 4.9 Sodium 134.0 Chloride 101.0 Glucose > 750 H* Lactate 3.2 H FiO2 21.0 Potassium Carbon Dioxide Anion Gap BUN Creatinine Est GFR ( Amer) Est GFR (Non-Af Amer) POC Glucose (mg/dL) > 500 H* Random Glucose Calcium Phosphorus Magnesium Procalcitonin 2.53 H Venous Blood Potassium 4.9 IgA 12/10/16 12/10/16 12/10/16 22:01 22:42 22:42 WBC RBC Hgb Hct MCV MCH MCHC RDW Plt Count MPV Gran % Lymph % (Auto) [place] % (Auto) Eos % (Auto) Baso % (Auto) Gran # Lymph # [place] # Eos # Baso # pO2 21 L VBG pH 7.36 VBG pCO2 44.0 VBG HCO3 24.9 VBG Total CO2 26.3 VBG O2 Sat (Calc) 42.3 VBG Base Excess -0.8 L VBG Potassium 4.1 Sodium 138 139.0 Chloride 102 106.0 Glucose 458 H* D Lactate 3.2 H FiO2 21.0 Potassium 4.0 Carbon Dioxide 26 Anion Gap 14 BUN 33 H Creatinine 1.2 Est GFR ( Amer) > 60 Est GFR (Non-Af Amer) > 60 POC Glucose (mg/dL) 500 H* Random Glucose 584 H* D Calcium 9.6 Phosphorus Magnesium Procalcitonin Venous Blood Potassium 4.1 IgA 12/10/16 12/11/16 12/11/16 23:57 01:02 01:57 WBC RBC Hgb Hct MCV MCH MCHC RDW Plt Count MPV Gran % Lymph % (Auto) [place] % (Auto) Eos % (Auto) Baso % (Auto) Gran # Lymph # [place] # Eos # Baso # pO2 VBG pH VBG pCO2 VBG HCO3 VBG Total CO2 VBG O2 Sat (Calc) VBG Base Excess VBG Potassium Sodium Chloride Glucose Lactate FiO2 Potassium Carbon Dioxide Anion Gap BUN Creatinine Est GFR ( Amer) Est GFR (Non-Af Amer) POC Glucose (mg/dL) 397 H 495 H* 441 H* Random Glucose Calcium Phosphorus Magnesium Procalcitonin Venous Blood Potassium IgA 12/11/16 12/11/16 12/11/16 03:03 04:02 04:47 WBC RBC Hgb Hct MCV MCH MCHC RDW Plt Count MPV Gran % Lymph % (Auto) [place] % (Auto) Eos % (Auto) Baso % (Auto) Gran # Lymph # [place] # Eos # Baso # pO2 VBG pH VBG pCO2 VBG HCO3 VBG Total CO2 VBG O2 Sat (Calc) VBG Base Excess VBG Potassium Sodium Chloride Glucose Lactate FiO2 Potassium Carbon Dioxide Anion Gap BUN Creatinine Est GFR ( Amer) Est GFR (Non-Af Amer) POC Glucose (mg/dL) 225 H 212 H 159 H Random Glucose Calcium Phosphorus Magnesium Procalcitonin Venous Blood Potassium IgA 12/11/16 12/11/16 12/11/16 06:20 06:30 06:30 WBC RBC Hgb Hct MCV MCH MCHC RDW Plt Count MPV Gran % Lymph % (Auto) [place] % (Auto) Eos % (Auto) Baso % (Auto) Gran # Lymph # [place] # Eos # Baso # pO2 VBG pH VBG pCO2 VBG HCO3 VBG Total CO2 VBG O2 Sat (Calc) VBG Base Excess VBG Potassium Sodium 144 Chloride 110 H Glucose Lactate FiO2 Potassium 3.6 Carbon Dioxide 30 Anion Gap 8 L BUN 28 H Creatinine 1.0 Est GFR ( Amer) > 60 Est GFR (Non-Af Amer) > 60 POC Glucose (mg/dL) 182 H Random Glucose 154 H Calcium 9.7 Phosphorus 2.4 L Magnesium 2.6 H Procalcitonin Venous Blood Potassium IgA 12/11/16 12/11/16 12/11/16 06:30 06:30 06:57 WBC 16.6 H RBC 3.98 Hgb 11.3 L Hct 34.0 L MCV 85.4 MCH 28.4 MCHC 33.2 RDW 13.5 Plt Count 328 MPV 11.6 H Gran % 81.8 H Lymph % (Auto) 5.0 L [place] % (Auto) 13.0 H Eos % (Auto) 0.1 L Baso % (Auto) 0.1 Gran # 13.58 H Lymph # 0.8 L [place] # 2.2 H Eos # 0.0 Baso # 0.02 pO2 67 H VBG pH 7.38 VBG pCO2 47.0 VBG HCO3 27.8 VBG Total CO2 29.2 H VBG O2 Sat (Calc) 96.2 H VBG Base Excess 2.0 VBG Potassium 3.7 Sodium 143.0 Chloride 115.0 H Glucose 155 H Lactate 1.7 FiO2 21.0 Potassium Carbon Dioxide Anion Gap BUN Creatinine Est GFR ( Amer) Est GFR (Non-Af Amer) POC Glucose (mg/dL) 171 H Random Glucose Calcium Phosphorus Magnesium Procalcitonin Venous Blood Potassium 3.7 IgA 12/11/16 12/11/16 08:08 09:48 WBC RBC Hgb Hct MCV MCH MCHC RDW Plt Count MPV Gran % Lymph % (Auto) [place] % (Auto) Eos % (Auto) Baso % (Auto) Gran # Lymph # [place] # Eos # Baso # pO2 VBG pH VBG pCO2 VBG HCO3 VBG Total CO2 VBG O2 Sat (Calc) VBG Base Excess VBG Potassium Sodium Chloride Glucose Lactate FiO2 Potassium Carbon Dioxide Anion Gap BUN Creatinine Est GFR ( Amer) Est GFR (Non-Af Amer) POC Glucose (mg/dL) 201 H 275 H Random Glucose Calcium Phosphorus Magnesium Procalcitonin Venous Blood Potassium IgA EKG/Cardiology Studies: Cardiology / EKG Studies 12/10/16 19:14 EKG [ELECTROCARDIOGRAM] Stat Comment: Reason For Exam: r/o dysrhytmia Fingerstick Blood Sugar Results: 201 Review of Systems - Review of Systems All systems: reviewed and no additional remarkable complaints except (as per HPI ) - EENT Eyes: absent: Change in Vision - Cardiovascular Cardiovascular: As Per HPI - Respiratory Respiratory: As Per HPI - Gastrointestinal Gastrointestinal: As Per HPI - Genitourinary Genitourinary: absent: Dysuria, Flank Pain, Hematuria, Urinary Urgency - Musculoskeletal Musculoskeletal: UNREMARKABLE - Integumentary Integumentary: As Per HPI - Neurological Neurological: Numbness. absent: Focal Weakness, Lack of Coordination - Psychiatric Psychiatric: UNREMARKABLE - Endocrine Endocrine: Polydipsia, Polyuria. absent: Palpitations, Polyphagia Assessment/Plan - Assessment and Plan (Free Text) Assessment: 61M with diabetes with poor medication compliance for several days who presented to the ICU with DKA and right foot cellulitis and subcutaneous gas Neuro: Chronic bilateral feet numbness/tingling Normal strength, decreased sensation BL feet up to the distal lower leg Continue to monitor Cardio: HR, BP stable, no complaints RRR, no murmurs, s1/s2 Continue to monitor Pulm: No cough, no SOB CTAB continue to monitor Supplement with O2 as needed to keep SaO2>94% GI: nausea and vomiting resolved Abominal exam benign NPO pending possible surgical intervention for cellulitis Continue to monitor : strict I&O's Endo: Anion gap closed, glucose: 159 Transition off of insulin drip to levemir, RISS medium protocol Evening dose of levemir to be adjusted by primary depending on insulin needs throughout the day Continue regular accuchecks Nephro: K: 3.6, supplemented Cr 1.0 UOP adequate Continue to monitor ID: afebrile since ICU admit procalcitonin 2.53, lactate 3.2 yesterday WBC: 16.6 down from 18.2 ID following, continue antibiotic therapy per their recommendations Continue to monitor CBC MSK: Cellulitis with blisters on right foot, 4+ pitting edema RLE CT R LE: focal soft tissue ulceration with phlegmonous inflammation and air in the later soft tissue at the 5th metatarophalangea joint to the level of bone, no abscess or osteomyelitis Surgery consulted, follow up recs Podiatry consulted, follow up recs Dispo: continue to monitor vitals in the ICU, if stable and successfully transitioned off the insulin drip transfer to med/surg Patient examined and discussed with Dr. Bryn Mercer, PGY1 <Eb Clemente - Last Filed: 12/11/16 19:15> CCU Objective - Vital Signs / Intake & Output Vital Signs (Last 4 hours): Vital Signs Temp Pulse Resp BP Pulse Ox 12/11/16 16:00 99.2 F 92 H 18 140/81 96 12/11/16 15:46 98.8 F 88 20 133/88 95 Intake and Output (Last 8hrs): Intake & Output 12/11/16 12/11/16 12/11/16 06:59 14:59 22:59 Intake Total 201 5193 0 Output Total 1150 Balance 201 4043 0 Weight 277 lb Intake: IV 201 3193 0 Left Forearm 9 Right Forearm 3175 Other 2000 Output: Urine 1150 Urine, Voided 700 urinal 450 Other: Voiding Method Urinal # Voids urinal 2 # Bowel Movements 0 - Medications Active Medications: Active Medications Generic Name Dose Route Start Last Admin Trade Name Freq PRN Reason Stop Dose Admin Heparin Sodium (Porcine) 5,000 units 12/10/16 22:00 12/11/16 14:34 Heparin SC 5,000 units Q8 MALLORY Administration Protocol Meropenem 1g/NS 100mL IVPB 1 gm in 100 mls @ 100 mls/hr 12/10/16 22:00 14:34 Meropenem 1g/Ns 100ml Ivpb IVPB 12/17/16 22:01 100 mls/hr Q8 MALLORY Administration Protocol Linezolid 600 mg in 300 mls @ 200 mls/hr 12/10/16 22:00 12/11/16 10:03 Zyvox 600mg/300ml D5w IVPB 12/17/16 22:01 200 mls/hr Q12 MALLORY Administration Protocol Dextrose/Sodium Chloride 1,000 mls @ 150 mls/hr 12/11/16 06:00 12/11/16 14:43 Dextrose 5%/0.45% Ns 1000 Ml IV 150 mls/hr .[id number] MALLORY Administration Insulin Detemir 30 unit 12/11/16 22:00 Levemir SC 12/11/16 22:01 ONCE ONE Insulin Human Regular 0 units 12/11/16 09:30 12/11/16 15:29 Humulin R Med SC 7 units Q6H MALLORY Administration Protocol Pantoprazole Sodium 40 mg 12/11/16 10:00 12/11/16 10:03 Protonix Inj IVP 40 mg DAILY MALLORY Administration - Patient Studies Lab Studies: Lab Studies 12/11/16 12/11/16 12/11/16 Range/Units 15:11 11:36 09:48 WBC (4.5-11.0) 10^3/ul RBC (3.5-6.1) 10^6/uL Hgb (14.0-18.0) gm/dL Hct (42.0-52.0) % MCV (80.0-105.0) fL MCH (25.0-35.0) pg MCHC (31.0-37.0) g/dl RDW (11.5-14.5) % Plt Count (120.0-450.0) 10^3/uL MPV (7.0-11.0) fl Gran % (50.0-68.0) % Lymph % (Auto) (22.0-35.0) % [place] % (Auto) (1.0-6.0) % Eos % (Auto) (1.5-5.0) % Baso % (Auto) (0.0-3.0) % Gran # (1.4-6.5) Lymph # (1.2-3.4) [place] # (0.1-0.6) Eos # (0.0-0.7) Baso # (0.0-2.0) K/mm3 pO2 (30-55) mm/Hg VBG pH (7.32-7.43) VBG pCO2 (40-60) VBG HCO3 (21-28) mmol/l VBG Total CO2 (22-28) mmol.L VBG O2 Sat (Calc) (40-65) % VBG Base Excess (0.0-2.0) mmol/L VBG Potassium (3.6-5.2) mmol/L Glucose (75-110) mg/dl Lactate (0.7-2.1) mmol/L FiO2 % Sodium (132-148) mmol/L Potassium (3.6-5.0) mmol/L Chloride (98-107) mmol/L Carbon Dioxide (21-33) mmol/L Anion Gap (10-20) BUN (7-21) mg/dL Creatinine (0.5-1.4) mg/dL Est GFR ( Amer) Est GFR (Non-Af Amer) POC Glucose (mg/dL) 304 H 301 H 275 H (65-110) mg/dL Random Glucose (70-110) mg/dL Calcium (8.4-10.5) mg/dL Phosphorus (2.5-4.5) mg/dL Magnesium (1.7-2.2) mg/dL Procalcitonin (0.19-0.49) NG/ML Venous Blood Potassium (3.6-5.2) mmol/L IgA (70.0-400.0) mg/dL 12/11/16 12/11/16 12/11/16 Range/Units 08:08 06:57 06:30 WBC (4.5-11.0) 10^3/ul RBC (3.5-6.1) 10^6/uL Hgb (14.0-18.0) gm/dL Hct (42.0-52.0) % MCV (80.0-105.0) fL MCH (25.0-35.0) pg MCHC (31.0-37.0) g/dl RDW (11.5-14.5) % Plt Count (120.0-450.0) 10^3/uL MPV (7.0-11.0) fl Gran % (50.0-68.0) % Lymph % (Auto) (22.0-35.0) % [place] % (Auto) (1.0-6.0) % Eos % (Auto) (1.5-5.0) % Baso % (Auto) (0.0-3.0) % Gran # (1.4-6.5) Lymph # (1.2-3.4) [place] # (0.1-0.6) Eos # (0.0-0.7) Baso # (0.0-2.0) K/mm3 pO2 67 H (30-55) mm/Hg VBG pH 7.38 (7.32-7.43) VBG pCO2 47.0 (40-60) VBG HCO3 27.8 (21-28) mmol/l VBG Total CO2 29.2 H (22-28) mmol.L VBG O2 Sat (Calc) 96.2 H (40-65) % VBG Base Excess 2.0 (0.0-2.0) mmol/L VBG Potassium 3.7 (3.6-5.2) mmol/L Glucose 155 H (75-110) mg/dl Lactate 1.7 (0.7-2.1) mmol/L FiO2 21.0 % Sodium 143.0 (132-148) mmol/L Potassium (3.6-5.0) mmol/L Chloride 115.0 H (98-107) mmol/L Carbon Dioxide (21-33) mmol/L Anion Gap (10-20) BUN (7-21) mg/dL Creatinine (0.5-1.4) mg/dL Est GFR ( Amer) Est GFR (Non-Af Amer) POC Glucose (mg/dL) 201 H 171 H (65-110) mg/dL Random Glucose (70-110) mg/dL Calcium (8.4-10.5) mg/dL Phosphorus (2.5-4.5) mg/dL Magnesium (1.7-2.2) mg/dL Procalcitonin (0.19-0.49) NG/ML Venous Blood Potassium 3.7 (3.6-5.2) mmol/L IgA (70.0-400.0) mg/dL 12/11/16 12/11/16 12/11/16 Range/Units 06:30 06:30 06:30 WBC 16.6 H (4.5-11.0) 10^3/ul RBC 3.98 (3.5-6.1) 10^6/uL Hgb 11.3 L (14.0-18.0) gm/dL Hct 34.0 L (42.0-52.0) % MCV 85.4 (80.0-105.0) fL MCH 28.4 (25.0-35.0) pg MCHC 33.2 (31.0-37.0) g/dl RDW 13.5 (11.5-14.5) % Plt Count 328 (120.0-450.0) 10^3/uL MPV 11.6 H (7.0-11.0) fl Gran % 81.8 H (50.0-68.0) % Lymph % (Auto) 5.0 L (22.0-35.0) % [place] % (Auto) 13.0 H (1.0-6.0) % Eos % (Auto) 0.1 L (1.5-5.0) % Baso % (Auto) 0.1 (0.0-3.0) % Gran # 13.58 H (1.4-6.5) Lymph # 0.8 L (1.2-3.4) [place] # 2.2 H (0.1-0.6) Eos # 0.0 (0.0-0.7) Baso # 0.02 (0.0-2.0) K/mm3 pO2 (30-55) mm/Hg VBG pH (7.32-7.43) VBG pCO2 (40-60) VBG HCO3 (21-28) mmol/l VBG Total CO2 (22-28) mmol.L VBG O2 Sat (Calc) (40-65) % VBG Base Excess (0.0-2.0) mmol/L VBG Potassium (3.6-5.2) mmol/L Glucose (75-110) mg/dl Lactate (0.7-2.1) mmol/L FiO2 % Sodium 144 (132-148) mmol/L Potassium 3.6 (3.6-5.0) mmol/L Chloride 110 H (98-107) mmol/L Carbon Dioxide 30 (21-33) mmol/L Anion Gap 8 L (10-20) BUN 28 H (7-21) mg/dL Creatinine 1.0 (0.5-1.4) mg/dL Est GFR ( Amer) > 60 Est GFR (Non-Af Amer) > 60 POC Glucose (mg/dL) (65-110) mg/dL Random Glucose 154 H (70-110) mg/dL Calcium 9.7 (8.4-10.5) mg/dL Phosphorus 2.4 L (2.5-4.5) mg/dL Magnesium 2.6 H (1.7-2.2) mg/dL Procalcitonin (0.19-0.49) NG/ML Venous Blood Potassium (3.6-5.2) mmol/L IgA (70.0-400.0) mg/dL 12/11/16 12/11/16 12/11/16 Range/Units 06:20 04:47 04:02 WBC (4.5-11.0) 10^3/ul RBC (3.5-6.1) 10^6/uL Hgb (14.0-18.0) gm/dL Hct (42.0-52.0) % MCV (80.0-105.0) fL MCH (25.0-35.0) pg MCHC (31.0-37.0) g/dl RDW (11.5-14.5) % Plt Count (120.0-450.0) 10^3/uL MPV (7.0-11.0) fl Gran % (50.0-68.0) % Lymph % (Auto) (22.0-35.0) % [place] % (Auto) (1.0-6.0) % Eos % (Auto) (1.5-5.0) % Baso % (Auto) (0.0-3.0) % Gran # (1.4-6.5) Lymph # (1.2-3.4) [place] # (0.1-0.6) Eos # (0.0-0.7) Baso # (0.0-2.0) K/mm3 pO2 (30-55) mm/Hg VBG pH (7.32-7.43) VBG pCO2 (40-60) VBG HCO3 (21-28) mmol/l VBG Total CO2 (22-28) mmol.L VBG O2 Sat (Calc) (40-65) % VBG Base Excess (0.0-2.0) mmol/L VBG Potassium (3.6-5.2) mmol/L Glucose (75-110) mg/dl Lactate (0.7-2.1) mmol/L FiO2 % Sodium (132-148) mmol/L Potassium (3.6-5.0) mmol/L Chloride (98-107) mmol/L Carbon Dioxide (21-33) mmol/L Anion Gap (10-20) BUN (7-21) mg/dL Creatinine (0.5-1.4) mg/dL Est GFR ( Amer) Est GFR (Non-Af Amer) POC Glucose (mg/dL) 182 H 159 H 212 H (65-110) mg/dL Random Glucose (70-110) mg/dL Calcium (8.4-10.5) mg/dL Phosphorus (2.5-4.5) mg/dL Magnesium (1.7-2.2) mg/dL Procalcitonin (0.19-0.49) NG/ML Venous Blood Potassium (3.6-5.2) mmol/L IgA (70.0-400.0) mg/dL 12/11/16 12/11/16 12/11/16 Range/Units 03:03 01:57 01:02 WBC (4.5-11.0) 10^3/ul RBC (3.5-6.1) 10^6/uL Hgb (14.0-18.0) gm/dL Hct (42.0-52.0) % MCV (80.0-105.0) fL MCH (25.0-35.0) pg MCHC (31.0-37.0) g/dl RDW (11.5-14.5) % Plt Count (120.0-450.0) 10^3/uL MPV (7.0-11.0) fl Gran % (50.0-68.0) % Lymph % (Auto) (22.0-35.0) % [place] % (Auto) (1.0-6.0) % Eos % (Auto) (1.5-5.0) % Baso % (Auto) (0.0-3.0) % Gran # (1.4-6.5) Lymph # (1.2-3.4) [place] # (0.1-0.6) Eos # (0.0-0.7) Baso # (0.0-2.0) K/mm3 pO2 (30-55) mm/Hg VBG pH (7.32-7.43) VBG pCO2 (40-60) VBG HCO3 (21-28) mmol/l VBG Total CO2 (22-28) mmol.L VBG O2 Sat (Calc) (40-65) % VBG Base Excess (0.0-2.0) mmol/L VBG Potassium (3.6-5.2) mmol/L Glucose (75-110) mg/dl Lactate (0.7-2.1) mmol/L FiO2 % Sodium (132-148) mmol/L Potassium (3.6-5.0) mmol/L Chloride (98-107) mmol/L Carbon Dioxide (21-33) mmol/L Anion Gap (10-20) BUN (7-21) mg/dL Creatinine (0.5-1.4) mg/dL Est GFR ( Amer) Est GFR (Non-Af Amer) POC Glucose (mg/dL) 225 H 441 H* 495 H* (65-110) mg/dL Random Glucose (70-110) mg/dL Calcium (8.4-10.5) mg/dL Phosphorus (2.5-4.5) mg/dL Magnesium (1.7-2.2) mg/dL Procalcitonin (0.19-0.49) NG/ML Venous Blood Potassium (3.6-5.2) mmol/L IgA (70.0-400.0) mg/dL 12/10/16 12/10/16 12/10/16 Range/Units 23:57 22:42 22:42 WBC (4.5-11.0) 10^3/ul RBC (3.5-6.1) 10^6/uL Hgb (14.0-18.0) gm/dL Hct (42.0-52.0) % MCV (80.0-105.0) fL MCH (25.0-35.0) pg MCHC (31.0-37.0) g/dl RDW (11.5-14.5) % Plt Count (120.0-450.0) 10^3/uL MPV (7.0-11.0) fl Gran % (50.0-68.0) % Lymph % (Auto) (22.0-35.0) % [place] % (Auto) (1.0-6.0) % Eos % (Auto) (1.5-5.0) % Baso % (Auto) (0.0-3.0) % Gran # (1.4-6.5) Lymph # (1.2-3.4) [place] # (0.1-0.6) Eos # (0.0-0.7) Baso # (0.0-2.0) K/mm3 pO2 21 L (30-55) mm/Hg VBG pH 7.36 (7.32-7.43) VBG pCO2 44.0 (40-60) VBG HCO3 24.9 (21-28) mmol/l VBG Total CO2 26.3 (22-28) mmol.L VBG O2 Sat (Calc) 42.3 (40-65) % VBG Base Excess -0.8 L (0.0-2.0) mmol/L VBG Potassium 4.1 (3.6-5.2) mmol/L Glucose 458 H* D (75-110) mg/dl Lactate 3.2 H (0.7-2.1) mmol/L FiO2 21.0 % Sodium 139.0 138 (132-148) mmol/L Potassium 4.0 (3.6-5.0) mmol/L Chloride 106.0 102 (98-107) mmol/L Carbon Dioxide 26 (21-33) mmol/L Anion Gap 14 (10-20) BUN 33 H (7-21) mg/dL Creatinine 1.2 (0.5-1.4) mg/dL Est GFR ( Amer) > 60 Est GFR (Non-Af Amer) > 60 POC Glucose (mg/dL) 397 H (65-110) mg/dL Random Glucose 584 H* D (70-110) mg/dL Calcium 9.6 (8.4-10.5) mg/dL Phosphorus (2.5-4.5) mg/dL Magnesium (1.7-2.2) mg/dL Procalcitonin (0.19-0.49) NG/ML Venous Blood Potassium 4.1 (3.6-5.2) mmol/L IgA (70.0-400.0) mg/dL 12/10/16 12/10/16 12/10/16 Range/Units 22:01 21:16 18:45 WBC (4.5-11.0) 10^3/ul RBC (3.5-6.1) 10^6/uL Hgb (14.0-18.0) gm/dL Hct (42.0-52.0) % MCV (80.0-105.0) fL MCH (25.0-35.0) pg MCHC (31.0-37.0) g/dl RDW (11.5-14.5) % Plt Count (120.0-450.0) 10^3/uL MPV (7.0-11.0) fl Gran % (50.0-68.0) % Lymph % (Auto) (22.0-35.0) % [place] % (Auto) (1.0-6.0) % Eos % (Auto) (1.5-5.0) % Baso % (Auto) (0.0-3.0) % Gran # (1.4-6.5) Lymph # (1.2-3.4) [place] # (0.1-0.6) Eos # (0.0-0.7) Baso # (0.0-2.0) K/mm3 pO2 (30-55) mm/Hg VBG pH (7.32-7.43) VBG pCO2 (40-60) VBG HCO3 (21-28) mmol/l VBG Total CO2 (22-28) mmol.L VBG O2 Sat (Calc) (40-65) % VBG Base Excess (0.0-2.0) mmol/L VBG Potassium (3.6-5.2) mmol/L Glucose (75-110) mg/dl Lactate (0.7-2.1) mmol/L FiO2 % Sodium (132-148) mmol/L Potassium (3.6-5.0) mmol/L Chloride (98-107) mmol/L Carbon Dioxide (21-33) mmol/L Anion Gap (10-20) BUN (7-21) mg/dL Creatinine (0.5-1.4) mg/dL Est GFR ( Amer) Est GFR (Non-Af Amer) POC Glucose (mg/dL) 500 H* > 500 H* (65-110) mg/dL Random Glucose (70-110) mg/dL Calcium (8.4-10.5) mg/dL Phosphorus (2.5-4.5) mg/dL Magnesium (1.7-2.2) mg/dL Procalcitonin 2.53 H (0.19-0.49) NG/ML Venous Blood Potassium (3.6-5.2) mmol/L IgA (70.0-400.0) mg/dL 12/10/16 12/10/16 Range/Units 18:45 18:45 WBC (4.5-11.0) 10^3/ul RBC (3.5-6.1) 10^6/uL Hgb (14.0-18.0) gm/dL Hct (42.0-52.0) % MCV (80.0-105.0) fL MCH (25.0-35.0) pg MCHC (31.0-37.0) g/dl RDW (11.5-14.5) % Plt Count (120.0-450.0) 10^3/uL MPV (7.0-11.0) fl Gran % (50.0-68.0) % Lymph % (Auto) (22.0-35.0) % [place] % (Auto) (1.0-6.0) % Eos % (Auto) (1.5-5.0) % Baso % (Auto) (0.0-3.0) % Gran # (1.4-6.5) Lymph # (1.2-3.4) [place] # (0.1-0.6) Eos # (0.0-0.7) Baso # (0.0-2.0) K/mm3 pO2 (30-55) mm/Hg VBG pH (7.32-7.43) VBG pCO2 (40-60) VBG HCO3 (21-28) mmol/l VBG Total CO2 (22-28) mmol.L VBG O2 Sat (Calc) (40-65) % VBG Base Excess (0.0-2.0) mmol/L VBG Potassium (3.6-5.2) mmol/L Glucose (75-110) mg/dl Lactate (0.7-2.1) mmol/L FiO2 % Sodium 133 (132-148) mmol/L Potassium 4.6 (3.6-5.0) mmol/L Chloride 99 (98-107) mmol/L Carbon Dioxide 20 L (21-33) mmol/L Anion Gap 19 (10-20) BUN 34 H (7-21) mg/dL Creatinine 1.2 (0.5-1.4) mg/dL Est GFR ( Amer) > 60 Est GFR (Non-Af Amer) > 60 POC Glucose (mg/dL) (65-110) mg/dL Random Glucose 826 H* D (70-110) mg/dL Calcium 9.5 (8.4-10.5) mg/dL Phosphorus (2.5-4.5) mg/dL Magnesium (1.7-2.2) mg/dL Procalcitonin (0.19-0.49) NG/ML Venous Blood Potassium (3.6-5.2) mmol/L IgA 462.3 H (70.0-400.0) mg/dL Laboratory Results - last 24 hr 12/10/16 12/10/16 12/10/16 18:45 18:45 18:45 WBC RBC Hgb Hct MCV MCH MCHC RDW Plt Count MPV Gran % Lymph % (Auto) [place] % (Auto) Eos % (Auto) Baso % (Auto) Gran # Lymph # [place] # Eos # Baso # pO2 VBG pH VBG pCO2 VBG HCO3 VBG Total CO2 VBG O2 Sat (Calc) VBG Base Excess VBG Potassium Glucose Lactate FiO2 Sodium 133 Potassium 4.6 Chloride 99 Carbon Dioxide 20 L Anion Gap 19 BUN 34 H Creatinine 1.2 Est GFR ( Amer) > 60 Est GFR (Non-Af Amer) > 60 POC Glucose (mg/dL) Random Glucose 826 H* D Calcium 9.5 Phosphorus Magnesium Procalcitonin 2.53 H Venous Blood Potassium IgA 462.3 H 12/10/16 12/10/16 12/10/16 21:16 22:01 22:42 WBC RBC Hgb Hct MCV MCH MCHC RDW Plt Count MPV Gran % Lymph % (Auto) [place] % (Auto) Eos % (Auto) Baso % (Auto) Gran # Lymph # [place] # Eos # Baso # pO2 VBG pH VBG pCO2 VBG HCO3 VBG Total CO2 VBG O2 Sat (Calc) VBG Base Excess VBG Potassium Glucose Lactate FiO2 Sodium 138 Potassium 4.0 Chloride 102 Carbon Dioxide 26 Anion Gap 14 BUN 33 H Creatinine 1.2 Est GFR ( Amer) > 60 Est GFR (Non-Af Amer) > 60 POC Glucose (mg/dL) > 500 H* 500 H* Random Glucose 584 H* D Calcium 9.6 Phosphorus Magnesium Procalcitonin Venous Blood Potassium IgA 12/10/16 12/10/16 12/11/16 22:42 23:57 01:02 WBC RBC Hgb Hct MCV MCH MCHC RDW Plt Count MPV Gran % Lymph % (Auto) [place] % (Auto) Eos % (Auto) Baso % (Auto) Gran # Lymph # [place] # Eos # Baso # pO2 21 L VBG pH 7.36 VBG pCO2 44.0 VBG HCO3 24.9 VBG Total CO2 26.3 VBG O2 Sat (Calc) 42.3 VBG Base Excess -0.8 L VBG Potassium 4.1 Glucose 458 H* D Lactate 3.2 H FiO2 21.0 Sodium 139.0 Potassium Chloride 106.0 Carbon Dioxide Anion Gap BUN Creatinine Est GFR ( Amer) Est GFR (Non-Af Amer) POC Glucose (mg/dL) 397 H 495 H* Random Glucose Calcium Phosphorus Magnesium Procalcitonin Venous Blood Potassium 4.1 IgA 12/11/16 12/11/16 12/11/16 01:57 03:03 04:02 WBC RBC Hgb Hct MCV MCH MCHC RDW Plt Count MPV Gran % Lymph % (Auto) [place] % (Auto) Eos % (Auto) Baso % (Auto) Gran # Lymph # [place] # Eos # Baso # pO2 VBG pH VBG pCO2 VBG HCO3 VBG Total CO2 VBG O2 Sat (Calc) VBG Base Excess VBG Potassium Glucose Lactate FiO2 Sodium Potassium Chloride Carbon Dioxide Anion Gap BUN Creatinine Est GFR ( Amer) Est GFR (Non-Af Amer) POC Glucose (mg/dL) 441 H* 225 H 212 H Random Glucose Calcium Phosphorus Magnesium Procalcitonin Venous Blood Potassium IgA 12/11/16 12/11/16 12/11/16 04:47 06:20 06:30 WBC RBC Hgb Hct MCV MCH MCHC RDW Plt Count MPV Gran % Lymph % (Auto) [place] % (Auto) Eos % (Auto) Baso % (Auto) Gran # Lymph # [place] # Eos # Baso # pO2 VBG pH VBG pCO2 VBG HCO3 VBG Total CO2 VBG O2 Sat (Calc) VBG Base Excess VBG Potassium Glucose Lactate FiO2 Sodium 144 Potassium 3.6 Chloride 110 H Carbon Dioxide 30 Anion Gap 8 L BUN 28 H Creatinine 1.0 Est GFR ( Amer) > 60 Est GFR (Non-Af Amer) > 60 POC Glucose (mg/dL) 159 H 182 H Random Glucose 154 H Calcium 9.7 Phosphorus Magnesium Procalcitonin Venous Blood Potassium IgA 12/11/16 12/11/16 12/11/16 06:30 06:30 06:30 WBC 16.6 H RBC 3.98 Hgb 11.3 L Hct 34.0 L MCV 85.4 MCH 28.4 MCHC 33.2 RDW 13.5 Plt Count 328 MPV 11.6 H Gran % 81.8 H Lymph % (Auto) 5.0 L [place] % (Auto) 13.0 H Eos % (Auto) 0.1 L Baso % (Auto) 0.1 Gran # 13.58 H Lymph # 0.8 L [place] # 2.2 H Eos # 0.0 Baso # 0.02 pO2 67 H VBG pH 7.38 VBG pCO2 47.0 VBG HCO3 27.8 VBG Total CO2 29.2 H VBG O2 Sat (Calc) 96.2 H VBG Base Excess 2.0 VBG Potassium 3.7 Glucose 155 H Lactate 1.7 FiO2 21.0 Sodium 143.0 Potassium Chloride 115.0 H Carbon Dioxide Anion Gap BUN Creatinine Est GFR ( Amer) Est GFR (Non-Af Amer) POC Glucose (mg/dL) Random Glucose Calcium Phosphorus 2.4 L Magnesium 2.6 H Procalcitonin Venous Blood Potassium 3.7 IgA 12/11/16 12/11/16 12/11/16 06:57 08:08 09:48 WBC RBC Hgb Hct MCV MCH MCHC RDW Plt Count MPV Gran % Lymph % (Auto) [place] % (Auto) Eos % (Auto) Baso % (Auto) Gran # Lymph # [place] # Eos # Baso # pO2 VBG pH VBG pCO2 VBG HCO3 VBG Total CO2 VBG O2 Sat (Calc) VBG Base Excess VBG Potassium Glucose Lactate FiO2 Sodium Potassium Chloride Carbon Dioxide Anion Gap BUN Creatinine Est GFR ( Amer) Est GFR (Non-Af Amer) POC Glucose (mg/dL) 171 H 201 H 275 H Random Glucose Calcium Phosphorus Magnesium Procalcitonin Venous Blood Potassium IgA 12/11/16 12/11/16 11:36 15:11 WBC RBC Hgb Hct MCV MCH MCHC RDW Plt Count MPV Gran % Lymph % (Auto) [place] % (Auto) Eos % (Auto) Baso % (Auto) Gran # Lymph # [place] # Eos # Baso # pO2 VBG pH VBG pCO2 VBG HCO3 VBG Total CO2 VBG O2 Sat (Calc) VBG Base Excess VBG Potassium Glucose Lactate FiO2 Sodium Potassium Chloride Carbon Dioxide Anion Gap BUN Creatinine Est GFR ( Amer) Est GFR (Non-Af Amer) POC Glucose (mg/dL) 301 H 304 H Random Glucose Calcium Phosphorus Magnesium Procalcitonin Venous Blood Potassium IgA EKG/Cardiology Studies: Cardiology / EKG Studies 12/10/16 19:14 EKG [ELECTROCARDIOGRAM] Stat Comment: Reason For Exam: r/o dysrhytmia Critical Care Progress Note - Nutrition Nutrition: Nutrition Category Date Time Status Consistent Carbohydrate [DIET] Diets 12/11/16 Dinner Ordered Addendum Addendum: 12/11/16 19:12 patient was seen, examined and discussed at bedside with Dr. Mercer. Her note reflects my exam, assessment and plan, except as below. Meds/Labs/ONE reviewed. 61 yo male with DKA in the setting of anaerobic infection of his right foot and sepsis. AG closed, right foot looks better. Surgical and ID consult appreciated. Patient is hemodynamically and respiratory hurley stable. [facility]
[2016-12-11] MEDS ORDERED: Insulin Regular 1 UNITS/0.01 ML ML SC STA (11:59)
[2016-12-11] MEDS ORDERED: HYDROmorphone 0.5 mg/0.5 ml ISec IVP PRN ×3 (15:44→19:37)
[2016-12-11] MEDS ORDERED: Sodium Chloride 0.9% 1,000 ML IV SCH ×2 (15:45→19:45)
[2016-12-11] MEDS ORDERED: Propofol 10 mg/ml Inj (20 ML) ONE (16:13)
[2016-12-11] MEDS ORDERED: Lidocaine 1% Inj (20ml) ONE (16:13)
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
--- NOTE | 2016-12-11 18:45 | PN ---
DATE: 12/11/2016 Seen on the floor. The foot is swollen with blisters. The CAT scan suggests air in the periosteum. We will take him to the operating room urgently this evening. Raji Jennnigs MD cc: [phone] TT: 12/11/2016 18:44:52 Confirmation # [id number] Dictation # [id number]
[2016-12-11] MEDS ORDERED: Midazolam 2 MG/2 ML VIAL ONE (18:52)
--- NOTE | 2016-12-11 19:40 | PCM.SURG1 ---
Surgeon's Initial Post Op Note - Surgeon's Notes Surgeon: Dr Jennings Lockstitch Tunnel Elastic Operator: Dr Oseguera PGY2 Type of Anesthesia: General Endo Pre-Operative Diagnosis: right foot infection; sepsis Operative Findings: malum perforans ulcer. necrotic tissue w/ multiple collections of pus Post-Operative Diagnosis: as above Operation Performed: incision and drainage of right foot necrotic abscess Specimen/Specimens Removed: culture Estimated Blood Loss: EBL {In ML}: 10 Blood Products Given: N/A Drains Used: Jose (x 4) Post-Op Condition: Good Date of Surgery/Procedure: 12/11/16 Time of Surgery/Procedure: 19:39
[2016-12-11] MEDS ORDERED: HYDROmorphone 0.5 mg/0.5 ml ISec ONE (19:44)
[2016-12-12] MEDS: Insulin Reg-MEDIUM-Coverage SC SCH ×4 (03:15→21:20)
[2016-12-12] MEDS: Meropenem 1g/NS 100mL IVPB 1 GM/100 ML PIGGYBACK IVPB SCH ×3 (06:15→21:21)
--- NOTE | 2016-12-12 06:23 | CP.PCM.PN ---
Subjective - Date & Time of Evaluation Date of Evaluation: 12/12/16 Time of Evaluation: 06:19 - Subjective Subjective: Gen Sx: Dr Jennings Pt S&E. Taken to OR last night for I&D of right foot. Found to have malum perforans ulcer which progressed to a gas gangrene. Currently pt states his foot feels much better. Pain is now well controlled. Denies fevers, chills, n/ v. Tolerating regular diet. Objective - Vital Signs/Intake and Output Vital Signs (last 24 hours): Temp Pulse Resp BP Pulse Ox 98.3 F 76 3 L 121/71 98 12/11/16 20:15 12/11/16 20:15 12/11/16 20:15 12/11/16 20:15 12/11/16 20:15 Intake and Output: 12/11/16 12/12/16 18:59 06:59 Intake Total 5193 540 Output Total 1150 300 Balance 4043 240 - Medications Medications: Current Medications Heparin Sodium (Porcine) (Heparin) 5,000 units SC Q8 [facility] PRN Reason: Protocol Last Admin: 12/12/16 06:14 Dose: 5,000 units Hydromorphone HCl (Dilaudid) 0.5 mg IVP Q3H PRN PRN Reason: Pain, Mild (1-3) Meropenem 1g/NS 100mL IVPB (Meropenem 1g/Ns 100ml Ivpb) 1 gm in 100 mls @ 100 mls/hr IVPB Q8 [facility] PRN Reason: Protocol Stop: 12/17/16 22:01 Last Admin: 12/12/16 06:15 Dose: 100 mls/hr Linezolid (Zyvox 600mg/300ml D5w) 600 mg in 300 mls @ 200 mls/hr IVPB Q12 [facility] PRN Reason: Protocol Stop: 12/17/16 22:01 Last Admin: 12/11/16 23:40 Dose: 200 mls/hr Dextrose/Sodium Chloride (Dextrose 5%/0.45% Ns 1000 Ml) 1,000 mls @ 150 mls/hr IV .Q6H40M [facility] Last Admin: 12/11/16 14:43 Dose: 150 mls/hr Insulin Human Regular (Humulin R Med) 0 units SC Q6H [facility] PRN Reason: Protocol Last Admin: 12/12/16 03:15 Dose: Not Given Ondansetron HCl (Zofran Inj) 4 mg IVP ONCE PRN PRN Reason: Nausea/Vomiting Pantoprazole Sodium (Protonix Inj) 40 mg IVP DAILY [facility] Last Admin: 12/11/16 10:03 Dose: 40 mg - Labs Labs: 12/11/16 06:30 12/11/16 06:30 - Constitutional Appears: Non-toxic, No Acute Distress - Head Exam Head Exam: NORMOCEPHALIC - Respiratory Exam Respiratory Exam: absent: Accessory Muscle Use, Respiratory Distress - Cardiovascular Exam Cardiovascular Exam: REGULAR RHYTHM - GI/Abdominal Exam GI & Abdominal Exam: Soft. absent: Tenderness - Extremities Exam Additional comments: right foot in kerlex dressing; c/d/i - Neurological Exam Neurological Exam: Alert, Awake, Oriented x3 - Psychiatric Exam Psychiatric exam: Normal Affect, Normal Mood - Skin Skin Exam: Normal Color, Warm Assessment and Plan - Assessment and Plan (Free Text) Assessment: 61M with gas gangrene of the right foot Plan: cont abx as per ID will change dressing/packing tomorrow pt will likely need repeat debridement in the OR in near future can repeat CT scan if clinical situation worsens pt in need of diabetic education d/w Dr Dick Oseguera, DO, PGY2
[2016-12-12 07:32] LABS: ADD MANUAL DIFF? NO
[2016-12-12 07:42] LABS: BASO # 0.01 K/mm3 (0.0-2.0); BASO % 0.1 % (0.0-3.0); EOS % 0.2 % (1.5-5.0); GRAN # 8.63 (1.4-6.5); GRAN % 79.5 % (50.0-68.0); HEMATOCRIT 31.8 % (42.0-52.0); LYMPH # 0.7 (1.2-3.4); LYMPH % 6.5 % (22.0-35.0); MEAN CELL VOLUME 85.3 fL (80.0-105.0); MEAN CORPUSCULAR HEMOGLOBIN 28.2 pg (25.0-35.0); MEAN PLATELET VOLUME 10.8 fl (7.0-11.0); MONO # 1.5 (0.1-0.6); MONO % 13.7 % (1.0-6.0); PLATELET COUNT 269 10^3/uL (120.0-450.0); RED CELL DISTRIBUTION WIDTH 13.6 % (11.5-14.5); WHITE BLOOD COUNT 10.8 10^3/ul (4.5-11.0)
--- NOTE | 2016-12-12 09:22 | PN ---
DATE: 12/11/2016 SUBJECTIVE: The patient is a 61-year-old male who was admitted to the intensive care unit with diabe tic ketoacidosis and cellulitis of the right lower extremity with pain and swelling and gas formation seen on CAT scan of the right foot. The patient is known to have a history of non-insulin dependent diabetes mellitus and hypertension. He is also status post radiation therapy for prostate cancer. When seen today, the patient is feeling better. He is looking much better. He is not diaphoretic. He is no longer short of breath. PHYSICAL EXAMINATION: GENERAL: He is awake, alert, and oriented. CHEST: Lung sounds are clear. HEART: Sounds are regular anteriorly. He is happy with his treatment in the intensive care unit. His sugar is now down to the 150 range. He was evaluated by the surgeon and is anticipating going to the operating room for cleaning his righ t foot ulcers and opening of the swelling and incision and drainage of the cellulitis of the right fo ot with gas formation. LABORATORY DATA: His white blood cell count this morning is down to 16.6, hemoglobin and hematocrit are 11.3 and 34.0, respectively. Sodium is 144, potassium 3.6, BUN is 28, creatinine 1.0. His blood pressure is 136/69. His heart rate is 88., So, the patient is anticipating surgical debridement and cleaning of his right foot. He will probabl y be transferred out of the intensive care unit later today and will be followed closely on a med/jesse g floor. Gustavo Desai MD cc: [phone] TT: 12/12/2016 09:21:54 Confirmation # [id number] Dictation # [id number] tn
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
[2016-12-12] MEDS: Linezolid 600 mg in D5W 300 ml 600 MG/300 ML BAG IVPB SCH ×2 (10:09→22:12)
--- NOTE | 2016-12-12 18:53 | US ---
PROCEDURE: Lower extremity PRINCE exam HISTORY: Peripheral vascular disease with pain and claudication. Diabetes. Previous smoker. PHYSICIAN(S): Toñito Callahan MD. FINDINGS: The resting PRINCE's are normal: right, 1.11and left, 1.13. The brachial systolic pressures are symmetric. The high thigh pressures and waveforms are relatively normal. The calf PVR waveforms augment normally. No significant gradients are noted across the thighs. The ankle and metatarsal waveforms are relatively normal and symmetric. No significant pressure gradients are noted across the lower legs. IMPRESSION: 1. Normal PRINCE and PVR examination at rest.
[2016-12-12] MEDS: Dextrose 5%/0.45% NS 1,000 ML IV SCH ×2 (19:23→19:24)
--- NOTE | 2016-12-12 20:20 | CP.PCM.PN ---
Subjective - Date & Time of Evaluation Date of Evaluation: 12/12/16 Time of Evaluation: 10:10 - Subjective Subjective: HAd surgery on his foot yesterday, feeling better, no fevers overnight, no foot pain, no nausea, no diarrhea. Objective - Vital Signs/Intake and Output Vital Signs (last 24 hours): Temp Pulse Resp BP Pulse Ox 99 F 85 20 134/84 95 12/12/16 16:00 12/12/16 16:00 12/12/16 16:00 12/12/16 16:00 12/12/16 16:00 - Medications Medications: Current Medications Heparin Sodium (Porcine) (Heparin) 5,000 units SC Q8 [facility] PRN Reason: Protocol Last Admin: 12/12/16 17:41 Dose: 5,000 units Hydromorphone HCl (Dilaudid) 0.5 mg IVP Q3H PRN PRN Reason: Pain, Mild (1-3) Meropenem 1g/NS 100mL IVPB (Meropenem 1g/Ns 100ml Ivpb) 1 gm in 100 mls @ 100 mls/hr IVPB Q8 [facility] PRN Reason: Protocol Stop: 12/17/16 22:01 Last Admin: 12/12/16 17:07 Dose: 100 mls/hr Linezolid (Zyvox 600mg/300ml D5w) 600 mg in 300 mls @ 200 mls/hr IVPB Q12 [facility] PRN Reason: Protocol Stop: 12/17/16 22:01 Last Admin: 12/12/16 10:09 Dose: 200 mls/hr Insulin Human Regular (Humulin R Med) 0 units SC ACHS [facility] PRN Reason: Protocol Ondansetron HCl (Zofran Inj) 4 mg IVP ONCE PRN PRN Reason: Nausea/Vomiting Pantoprazole Sodium (Protonix Inj) 40 mg IVP DAILY [facility] Last Admin: 12/12/16 10:10 Dose: 40 mg - Labs Labs: 12/12/16 07:30 12/11/16 06:30 - Constitutional Appears: Non-toxic, No Acute Distress - Head Exam Head Exam: NORMAL INSPECTION - ENT Exam ENT Exam: Mucous Membranes Moist - Neck Exam Neck Exam: absent: Lymphadenopathy, Meningismus - Respiratory Exam Respiratory Exam: Decreased Breath Sounds - Cardiovascular Exam Cardiovascular Exam: +S1, +S2 - GI/Abdominal Exam GI & Abdominal Exam: Soft. absent: Tenderness Assessment and Plan - Assessment and Plan (Free Text) Plan: Assessment severe sepsis with acute renal failure due to probable gas gangrene of the right foot with associated cellulitis of the right leg in this patient with infected diabetic foot ulcers S/P debridement POD #1 obesity with BMI 35 DM HTN Plan continue Zyvox and Merrem day 2; blood cx negative; follow up wound cxfrom the OR; reviewed CT of the right foot and leg which showed the air/gas in the foot with surrounding erythema and phlegmon Will continue to monitor clinically
[2016-12-13] MEDS: Meropenem 1g/NS 100mL IVPB 1 GM/100 ML PIGGYBACK IVPB SCH ×3 (05:40→21:15)
[2016-12-13 07:27] LABS: ADD MANUAL DIFF? NO
[2016-12-13 07:33] LABS: BASO # 0.02 K/mm3 (0.0-2.0); BASO % 0.2 % (0.0-3.0); EOS % 0.5 % (1.5-5.0); GRAN # 6.32 (1.4-6.5); HEMATOCRIT 32.8 % (42.0-52.0); LYMPH # 0.7 (1.2-3.4); LYMPH % 8.9 % (22.0-35.0); MEAN CELL VOLUME 86.1 fL (80.0-105.0); MEAN CORPUSCULAR HEMOGLOBIN 27.8 pg (25.0-35.0); MEAN CORPUSCULAR HGB CONC 32.3 g/dl (31.0-37.0); MEAN PLATELET VOLUME 11.2 fl (7.0-11.0); MONO # 1.2 (0.1-0.6); MONO % 14.4 % (1.0-6.0); PLATELET COUNT 268 10^3/uL (120.0-450.0); RED CELL DISTRIBUTION WIDTH 13.5 % (11.5-14.5); WHITE BLOOD COUNT 8.3 10^3/ul (4.5-11.0)
[2016-12-13] MEDS: Insulin Reg-MEDIUM-Coverage SC SCH ×3 (08:55→18:53)
--- NOTE | 2016-12-13 10:17 | CP.PCM.PN ---
Subjective - Date & Time of Evaluation Date of Evaluation: 12/13/16 Time of Evaluation: 07:00 - Subjective Subjective: General Surgery Progress Note for Dr. Jennings Pt was seen and examined at bedside. Pt states he is feeling better. No acute complaints at this time. No acute or adverse events overnight as per nursing staff. Pt would like to have a foot cast so he may ambulate on his own. He reports tolerating po intake and moving is bowel and bladder regularly. Pt denied fever, chills, n/v/d/c or any associated pain. Objective - Vital Signs/Intake and Output Vital Signs (last 24 hours): Temp Pulse Resp BP Pulse Ox 99.4 F 85 20 146/91 H 94 L 12/13/16 08:05 12/13/16 08:05 12/13/16 08:05 12/13/16 08:05 12/13/16 08:05 Intake and Output: 12/13/16 12/13/16 06:59 18:59 Intake Total 780 Output Total 1600 Balance -820 - Medications Medications: Current Medications Heparin Sodium (Porcine) (Heparin) 5,000 units SC Q8 [facility] PRN Reason: Protocol Last Admin: 12/13/16 05:38 Dose: 5,000 units Hydromorphone HCl (Dilaudid) 0.5 mg IVP Q3H PRN PRN Reason: Pain, Mild (1-3) Meropenem 1g/NS 100mL IVPB (Meropenem 1g/Ns 100ml Ivpb) 1 gm in 100 mls @ 100 mls/hr IVPB Q8 [facility] PRN Reason: Protocol Stop: 12/17/16 22:01 Last Admin: 12/13/16 05:40 Dose: 100 mls/hr Linezolid (Zyvox 600mg/300ml D5w) 600 mg in 300 mls @ 200 mls/hr IVPB Q12 [facility] PRN Reason: Protocol Stop: 12/17/16 22:01 Last Admin: 12/12/16 22:12 Dose: 200 mls/hr Micafungin Sodium 100 mg/ (Sodium Chloride) 100 mls @ 100 mls/hr IV DAILY [facility] PRN Reason: Protocol Stop: 12/20/16 10:01 Insulin Human Regular (Humulin R Med) 0 units SC ACHS [facility] PRN Reason: Protocol Last Admin: 12/13/16 08:55 Dose: 8 units Ondansetron HCl (Zofran Inj) 4 mg IVP ONCE PRN PRN Reason: Nausea/Vomiting Pantoprazole Sodium (Protonix Inj) 40 mg IVP DAILY [facility] Last Admin: 12/12/16 10:10 Dose: 40 mg - Labs Labs: 12/13/16 07:00 12/11/16 06:30 - Constitutional Appears: No Acute Distress - Head Exam Head Exam: ATRAUMATIC, NORMAL INSPECTION, NORMOCEPHALIC - Eye Exam Eye Exam: EOMI, Normal appearance, PERRL Pupil Exam: NORMAL ACCOMODATION, PERRL - ENT Exam ENT Exam: Mucous Membranes Moist, Normal Exam - Respiratory Exam Respiratory Exam: Clear to Ausculation Bilateral, NORMAL BREATHING PATTERN - Cardiovascular Exam Cardiovascular Exam: REGULAR RHYTHM, +S1, +S2. absent: Murmur - Extremities Exam Extremities Exam: Full ROM, Normal Capillary Refill, Normal Inspection, Pedal Edema. absent: Joint Swelling, Tenderness Additional comments: Dressing CDI to RLE - Psychiatric Exam Psychiatric exam: Normal Affect, Normal Mood - Skin Skin Exam: Dry, Intact, Normal Color, Warm Assessment and Plan - Assessment and Plan (Free Text) Assessment: 61M with gas gangrene of the right foot s/p I&D POD #2 - Day 3 merrem and zyvox as per ID - Continue to change dressings and packing - will likely need repeat debridement in near future - Offloading boot to ambulate - Physical therapy - Cont DM education - GI/DVT ppx, Protonix and heparin Seen reviewed and discussed with attending Shereen Patel PGY-1
[2016-12-13] MEDS: Micafungin 100 MG in Sodium Chloride 0.9% 100 ML IV SCH (11:37)
[2016-12-13] MEDS: Linezolid 600 mg in D5W 300 ml 600 MG/300 ML BAG IVPB SCH ×2 (11:45→21:13)
--- NOTE | 2016-12-13 18:06 | CP.PCM.PN ---
Subjective - Date & Time of Evaluation Date of Evaluation: 12/13/16 Time of Evaluation: 09:55 - Subjective Subjective: Comfortable, less pain the right foot, no fevers. Objective - Vital Signs/Intake and Output Vital Signs (last 24 hours): Temp Pulse Resp BP Pulse Ox 98.5 F 95 H 20 118/89 97 12/13/16 16:00 12/13/16 16:00 12/13/16 16:00 12/13/16 16:00 12/13/16 16:00 Intake and Output: 12/13/16 12/13/16 06:59 18:59 Intake Total 780 Output Total 1600 Balance -820 - Medications Medications: Current Medications Carvedilol (Coreg) 12.5 mg PO BID [facility] Glimepiride (Amaryl) 4 mg PO BID [facility] Heparin Sodium (Porcine) (Heparin) 5,000 units SC Q8 [facility] PRN Reason: Protocol Last Admin: 12/13/16 14:57 Dose: 5,000 units Hydromorphone HCl (Dilaudid) 0.5 mg IVP Q3H PRN PRN Reason: Pain, Mild (1-3) Meropenem 1g/NS 100mL IVPB (Meropenem 1g/Ns 100ml Ivpb) 1 gm in 100 mls @ 100 mls/hr IVPB Q8 [facility] PRN Reason: Protocol Stop: 12/17/16 22:01 Last Admin: 12/13/16 14:58 Dose: 100 mls/hr Linezolid (Zyvox 600mg/300ml D5w) 600 mg in 300 mls @ 200 mls/hr IVPB Q12 [facility] PRN Reason: Protocol Stop: 12/17/16 22:01 Last Admin: 12/13/16 11:45 Dose: 200 mls/hr Micafungin Sodium 100 mg/ (Sodium Chloride) 100 mls @ 100 mls/hr IV DAILY [facility] PRN Reason: Protocol Stop: 12/20/16 10:01 Last Admin: 12/13/16 11:37 Dose: 100 mls/hr Insulin Human Regular (Humulin R Med) 0 units SC ACHS [facility] PRN Reason: Protocol Last Admin: 12/13/16 12:49 Dose: 10 units Lisinopril (Zestril) 5 mg PO DAILY [facility] Last Admin: 12/13/16 15:00 Dose: 5 mg Ondansetron HCl (Zofran Inj) 4 mg IVP ONCE PRN PRN Reason: Nausea/Vomiting Pantoprazole Sodium (Protonix Inj) 40 mg IVP DAILY [facility] Last Admin: 12/13/16 11:44 Dose: 40 mg - Labs Labs: 12/13/16 07:00 12/11/16 06:30 - Constitutional Appears: Non-toxic, No Acute Distress - Head Exam Head Exam: NORMAL INSPECTION - ENT Exam ENT Exam: Mucous Membranes Moist - Neck Exam Neck Exam: absent: Lymphadenopathy, Meningismus - Respiratory Exam Respiratory Exam: Decreased Breath Sounds - Cardiovascular Exam Cardiovascular Exam: +S1, +S2 - GI/Abdominal Exam GI & Abdominal Exam: Soft. absent: Tenderness - Extremities Exam Additional comments: right foot with dressings in place Assessment and Plan - Assessment and Plan (Free Text) Plan: Assessment severe sepsis with acute renal failure due to probable gas gangrene of the right foot with associated cellulitis of the right leg in this patient with infected diabetic foot ulcers S/P debridement POD #2, growing yeast obesity with BMI 35 DM HTN Plan continue Zyvox and Merrem day 3 and added MYcamine pending identification of the yeast in the wound; blood cx negative; reviewed CT of the right foot and leg which showed the air/gas in the foot with surrounding erythema and phlegmon Will continue to monitor clinically
[2016-12-14] MEDS: Meropenem 1g/NS 100mL IVPB 1 GM/100 ML PIGGYBACK IVPB SCH ×3 (05:30→21:55)
[2016-12-14] MEDS: Insulin Reg-MEDIUM-Coverage SC SCH ×4 (06:21→18:23)
[2016-12-14] MEDS: Linezolid 600 mg in D5W 300 ml 600 MG/300 ML BAG IVPB SCH (10:42)
--- NOTE | 2016-12-14 11:19 | CP.PCM.PN ---
Subjective - Date & Time of Evaluation Date of Evaluation: 12/14/16 Time of Evaluation: 08:30 - Subjective Subjective: Surgery: Dr. Jennings Pt seen and examined. No acute events overnight. States he's feeling better and was able to walk around on his foot yesterday. Pain is well controlled. Denies F /C. Objective - Vital Signs/Intake and Output Vital Signs (last 24 hours): Temp Pulse Resp BP Pulse Ox 98.8 F 74 20 132/84 94 L 12/14/16 07:30 12/14/16 10:42 12/14/16 07:30 12/14/16 10:42 12/14/16 07:30 Intake and Output: 12/14/16 12/14/16 06:59 18:59 Intake Total 780 Output Total 600 Balance 180 - Medications Medications: Current Medications Carvedilol (Coreg) 12.5 mg PO BID [facility] Last Admin: 12/14/16 10:41 Dose: 12.5 mg Glimepiride (Amaryl) 4 mg PO BID [facility] Last Admin: 12/14/16 10:50 Dose: 4 mg Heparin Sodium (Porcine) (Heparin) 5,000 units SC Q8 [facility] PRN Reason: Protocol Last Admin: 12/14/16 05:27 Dose: 5,000 units Hydromorphone HCl (Dilaudid) 0.5 mg IVP Q3H PRN PRN Reason: Pain, Mild (1-3) Meropenem 1g/NS 100mL IVPB (Meropenem 1g/Ns 100ml Ivpb) 1 gm in 100 mls @ 100 mls/hr IVPB Q8 [facility] PRN Reason: Protocol Stop: 12/17/16 22:01 Last Admin: 12/14/16 05:30 Dose: 100 mls/hr Linezolid (Zyvox 600mg/300ml D5w) 600 mg in 300 mls @ 200 mls/hr IVPB Q12 [facility] PRN Reason: Protocol Stop: 12/17/16 22:01 Last Admin: 12/14/16 10:42 Dose: 200 mls/hr Micafungin Sodium 100 mg/ (Sodium Chloride) 100 mls @ 100 mls/hr IV DAILY [facility] PRN Reason: Protocol Stop: 12/20/16 10:01 Last Admin: 12/13/16 11:37 Dose: 100 mls/hr Insulin Human Regular (Humulin R Med) 0 units SC Q6 [facility] PRN Reason: Protocol Last Admin: 12/14/16 06:21 Dose: Not Given Lisinopril (Zestril) 5 mg PO DAILY [facility] Last Admin: 12/14/16 10:42 Dose: 5 mg Metformin HCl (Glucophage) 500 mg PO BID [facility] Last Admin: 12/14/16 10:42 Dose: 500 mg Ondansetron HCl (Zofran Inj) 4 mg IVP ONCE PRN PRN Reason: Nausea/Vomiting Pantoprazole Sodium (Protonix Inj) 40 mg IVP DAILY [facility] Last Admin: 12/14/16 10:41 Dose: 40 mg - Labs Labs: 12/13/16 07:00 12/11/16 06:30 - Constitutional Appears: Well, No Acute Distress - Head Exam Head Exam: ATRAUMATIC, NORMOCEPHALIC - ENT Exam ENT Exam: Mucous Membranes Moist - Respiratory Exam Respiratory Exam: NORMAL BREATHING PATTERN - Cardiovascular Exam Cardiovascular Exam: RRR - GI/Abdominal Exam GI & Abdominal Exam: Soft - Extremities Exam Additional comments: R foot s/p I&D with sarah drains and dressing in place, erythema and swelling slightly improved - Neurological Exam Neurological Exam: Alert, Awake, Oriented x3 - Skin Skin Exam: Dry, Intact, Warm Assessment and Plan - Assessment and Plan (Free Text) Assessment: 61M with necrotizing infection of the R foot s/p I&D; POD#3 Plan: - Will continue local wound care with packing/dressing changes - Cont IV ABX as per ID recs - d/w Dr. Dick Salcido, PGY-2 Surgery
[2016-12-14] MEDS ORDERED: Magnesium Hydroxide Susp 30 ml UD PO PRN (12:13)
--- NOTE | 2016-12-14 13:16 | PN ---
DATE: 12/14/2016 The patient is a 61-year-old male who was admitted to [facility] 4 days ago initially to the intensive care unit with diabetic ketoacidosis and cellulitis of the right lower extremity. He had been complaining of pain and swelling. There was gas formation in an area on CAT scan. He was treated with intravenous fluids, intravenous insulin, started on intravenous antibiotics. During his hospital stay, he was taken to the operating room for debridement of his wounds and cellulitis of the right foot. Since then, he was doing well. He is transferred to the surgical/medical floor and he continues to do well. CURRENT MEDICATIONS: Include meropenem, micafungin, and Zyvox. He is also on Zestril 5 mg, Protonix 40 mg IV, milk of magnesia as needed. He is getting insulin coverage for his fingerstick glucoses. He is on Glucophage 500 mg twice a day, Colace 100 mg twice a day, Coreg 40 mg once a day, and glimepiride 4 mg twice a day. The patient does have a history of non-insulin dependent diabetes mellitus and hypertension. He is also status post radiation therapy for prostatic carcinoma. When seen today, the patient is sitting up in a chair. He is feeling well. He refused his insulin coverage this morning and that is when the Glucophage 500 mg twice a day was added to his regimen. PHYSICAL EXAMINATION: GENERAL: He is awake, alert, oriented and friendly. LUNGS: Clear. HEART: Regular. ABDOMEN: Soft and nontender. The patient does complain of constipation. Therefore, the milk of magnesia and Colace was ordered. EXTREMITIES: His right lower extremity is dressed status post incision and drainage of the cellulitis. It is in a postop podiatric boot. The erythema in the pretibial area is markedly reduced. His toes appear less erythematous. They are still, however, swollen. PLAN: We will continue to follow the patient closely. The patient will possibly need further surgical debridement of his wounds as per surgery and we will monitor his glucose fingersticks closely. Gustavo Desai MD cc: [phone] TT: 12/14/2016 13:16:03 Confirmation # [id number] Dictation # [id number] tn MTDJuve
[2016-12-14] MEDS: Micafungin 100 MG in Sodium Chloride 0.9% 100 ML IV SCH (15:00)
--- NOTE | 2016-12-14 16:20 | PN ---
DATE: 12/14/2016 The patient is in bed in no acute distress, nontoxic. PHYSICAL EXAMINATION: VITAL SIGNS: Temperature is 98, blood pressure is 130/80, respiratory rate of 20. HEENT: Unremarkable. NECK: Supple. LUNGS: Have decreased breath sounds. HEART: Normal S1, S2. ABDOMEN: Soft. LABORATORY EXAMINATION: Reveals a white count of 8.3, hemoglobin of 10 and platelets of 268. BUN of 28, creatinine of 1.0. Microbiology reveals the blood culture is positive for lactobacillus species . Review of orders reveals the patient to be on Zyvox and meropenem. ASSESSMENT AND PLAN: A 61-year-old male with severe sepsis, acute renal failure and has gangrene of right foot and cellulitis, status post debridement post-procedure day #3 with bacteremia with lactoba cillus and currently on Zyvox and meropenem day #4. Will follow closely with you. Aaron Em MD cc: [phone] TT: 12/14/2016 16:19:34 Confirmation # [id number] Dictation # [id number] mn
[2016-12-14] MEDS: Insulin Reg-HIGH-Coverage SC SCH (21:57)
[2016-12-15] MEDS: Meropenem 1g/NS 100mL IVPB 1 GM/100 ML PIGGYBACK IVPB SCH ×3 (05:30→21:12)
[2016-12-15 07:32] LABS: HEMATOCRIT 32.9 % (42.0-52.0); MEAN CELL VOLUME 85.2 fL (80.0-105.0); MEAN CORPUSCULAR HEMOGLOBIN 28.2 pg (25.0-35.0); MEAN CORPUSCULAR HGB CONC 33.1 g/dl (31.0-37.0); MEAN PLATELET VOLUME 11.1 fl (7.0-11.0); RED CELL DISTRIBUTION WIDTH 13.4 % (11.5-14.5); WHITE BLOOD COUNT 9.4 10^3/ul (4.5-11.0)
[2016-12-15 07:54] LABS: BLOOD UREA NITROGEN 14 mg/dL (7-21); CALCIUM 8.6 mg/dL (8.4-10.5); CARBON DIOXIDE 30 mmol/L (21-33); CHLORIDE 99 mmol/L (98-107); GFR AFRICAN-AMERICAN > 60; POTASSIUM 4.1 mmol/L (3.6-5.0); SODIUM 135 mmol/L (132-148)
[2016-12-15 08:04] LABS: GLUCOSE,RANDOM 336 mg/dL (70-110)
[2016-12-15] MEDS: Insulin Reg-HIGH-Coverage SC SCH ×4 (08:11→22:20)
[2016-12-15] MEDS ORDERED: LISINOPRIL 5 MG PO SCH (10:00)
--- NOTE | 2016-12-15 11:55 | PN ---
DATE: 12/15/2016 The patient is in bed, in no acute distress, nontoxic. PHYSICAL EXAMINATION: VITAL SIGNS: Temperature is 98, blood pressure is 109/60, respiratory rate of 20, heart rate of 81. HEENT: Unremarkable. NECK: Supple. LUNGS: Have decreased breath sounds. HEART: Normal S1, S2. ABDOMEN: Soft. LABORATORY EXAMINATION: Reveals a white count of 9.4, hemoglobin of 10, platelets of 276. BUN of 14 , creatinine of 0.9. Immunology is noted. Microbiology reveals the beta hemolytic Strep group B. Review of orders reveals the patient to be on meropenem and linezolid. ASSESSMENT AND PLAN: A 61-year-old male with severe sepsis, acute renal failure, gangrene of the rig ht foot, cellulitis, status post debridement. Post-procedure day #4 with lactobacillus bacteremia. Currently on Zyvox and meropenem day #5. Dr. Alex Desai's note from yesterday is reviewed. The pa miya needs further surgical debridement. Dr. Jennings's note from yesterday is reviewed. Case was d iscussed with Dr. Jennings yesterday. Status post postop day #3 of debridement. The patient also on Mycamine for Shanika tropicalis. Will follow closely with you. Aaron Em MD cc: [id number] TT: 12/15/2016 11:55:22 Confirmation # [id number] Dictation # [id number]
[2016-12-15] MEDS: TRADJENTA 5MG PO SCH (12:44)
[2016-12-15] MEDS: Micafungin 100 MG in Sodium Chloride 0.9% 100 ML IV SCH (12:44)
--- NOTE | 2016-12-15 13:35 | CP.PCM.PN ---
Subjective - Date & Time of Evaluation Date of Evaluation: 12/15/16 Time of Evaluation: 13:33 - Subjective Subjective: Surgery for Dr. Jennings Pt [place]. Pain controlled. Able to ambulate. Denies F/C/N/V/D/CP/SOB. Objective - Vital Signs/Intake and Output Vital Signs (last 24 hours): Temp Pulse Resp BP Pulse Ox 98.6 F 75 20 109/65 97 12/15/16 07:30 12/15/16 10:51 12/15/16 07:30 12/15/16 10:51 12/15/16 07:30 Intake and Output: 12/15/16 12/15/16 06:59 18:59 Intake Total 1180 Output Total 1000 Balance 180 - Medications Medications: Current Medications Carvedilol (Coreg) 12.5 mg PO BID [facility] Last Admin: 12/15/16 10:51 Dose: 12.5 mg Docusate Sodium (Colace) 100 mg PO BID [facility] Last Admin: 12/15/16 10:14 Dose: Not Given Glimepiride (Amaryl) 4 mg PO BID [facility] Last Admin: 12/15/16 10:50 Dose: 4 mg Heparin Sodium (Porcine) (Heparin) 5,000 units SC Q8 [facility] PRN Reason: Protocol Last Admin: 12/15/16 05:29 Dose: 5,000 units Home Med (Home Med) 1 unit PO DAILY [facility] Last Admin: 12/15/16 12:44 Dose: 1 unit Hydromorphone HCl (Dilaudid) 0.5 mg IVP Q3H PRN PRN Reason: Pain, Mild (1-3) Meropenem 1g/NS 100mL IVPB (Meropenem 1g/Ns 100ml Ivpb) 1 gm in 100 mls @ 100 mls/hr IVPB Q8 [facility] PRN Reason: Protocol Stop: 12/17/16 22:01 Last Admin: 12/15/16 13:25 Dose: 100 mls/hr Linezolid (Zyvox 600mg/300ml D5w) 600 mg in 300 mls @ 200 mls/hr IVPB Q12 [facility] PRN Reason: Protocol Stop: 12/17/16 22:01 Last Admin: 12/14/16 10:42 Dose: 200 mls/hr Micafungin Sodium 100 mg/ (Sodium Chloride) 100 mls @ 100 mls/hr IV DAILY [facility] PRN Reason: Protocol Stop: 12/20/16 10:01 Last Admin: 12/15/16 12:44 Dose: 100 mls/hr Insulin Human Regular (Humulin R High) 0 units SC ACHS [facility] PRN Reason: Protocol Last Admin: 12/15/16 12:46 Dose: 12 units Lisinopril (Zestril) 5 mg PO DAILY [facility] Last Admin: 12/15/16 10:50 Dose: 5 mg Magnesium Hydroxide (Milk Of Magnesia) 30 ml PO DAILY PRN PRN Reason: Constipation Metformin HCl (Glucophage) 500 mg PO BID [facility] Last Admin: 12/15/16 10:50 Dose: 500 mg Pantoprazole Sodium (Protonix Inj) 40 mg IVP DAILY [facility] Last Admin: 12/15/16 10:51 Dose: 40 mg - Labs Labs: 12/15/16 07:00 12/15/16 07:00 - Constitutional Appears: No Acute Distress - Head Exam Head Exam: ATRAUMATIC, NORMAL INSPECTION, NORMOCEPHALIC - Eye Exam Eye Exam: EOMI, Normal appearance, PERRL Pupil Exam: NORMAL ACCOMODATION, PERRL - ENT Exam ENT Exam: Mucous Membranes Moist, Normal Exam - Neck Exam Neck Exam: Full ROM, Normal Inspection. absent: Lymphadenopathy - Respiratory Exam Respiratory Exam: Clear to Ausculation Bilateral, NORMAL BREATHING PATTERN - Cardiovascular Exam Cardiovascular Exam: REGULAR RHYTHM, +S1, +S2. absent: Murmur - GI/Abdominal Exam GI & Abdominal Exam: Soft, Normal Bowel Sounds. absent: Tenderness - Extremities Exam Extremities Exam: absent: Full ROM, Normal Capillary Refill, Normal Inspection Additional comments: R foot dressing C/D/I. b/l legs edema - Back Exam Back Exam: NORMAL INSPECTION - Neurological Exam Neurological Exam: Alert, Awake, CN II-XII Intact, Oriented x3 - Psychiatric Exam Psychiatric exam: Normal Affect, Normal Mood - Skin Skin Exam: Dry, Erythema, Intact, Warm Assessment and Plan - Assessment and Plan (Free Text) Assessment: 61M with necrotizing infection of the R foot s/p I&D; POD#4 Plan: -OR Tues for R foot debridement : NPO after midnight on Friday night. - Will continue local wound care with packing/dressing changes - Cont IV ABX as per ID recs - d/w Dr. Jennings
[2016-12-15] MEDS: Linezolid 600 mg in D5W 300 ml 600 MG/300 ML BAG IVPB SCH ×2 (14:54→21:12)
[2016-12-16] MEDS: Meropenem 1g/NS 100mL IVPB 1 GM/100 ML PIGGYBACK IVPB SCH ×3 (05:58→21:39)
[2016-12-16 07:15] LABS: ADD MANUAL DIFF? NO
[2016-12-16 07:20] LABS: BASO # 0.01 K/mm3 (0.0-2.0); BASO % 0.1 % (0.0-3.0); EOS # 0.1 (0.0-0.7); EOS % 0.7 % (1.5-5.0); GRAN # 7.99 (1.4-6.5); HEMATOCRIT 32.8 % (42.0-52.0); LYMPH # 1.1 (1.2-3.4); LYMPH % 10.5 % (22.0-35.0); MEAN CELL VOLUME 85.4 fL (80.0-105.0); MEAN CORPUSCULAR HEMOGLOBIN 27.9 pg (25.0-35.0); MEAN CORPUSCULAR HGB CONC 32.6 g/dl (31.0-37.0); MEAN PLATELET VOLUME 10.5 fl (7.0-11.0); MONO # 1.1 (0.1-0.6); MONO % 10.7 % (1.0-6.0); PLATELET COUNT 291 10^3/uL (120.0-450.0); RED CELL DISTRIBUTION WIDTH 13.5 % (11.5-14.5); WHITE BLOOD COUNT 10.3 10^3/ul (4.5-11.0)
[2016-12-16 07:40] LABS: ALB/GLOB RATIO 0.7 (1.1-1.8); ALKALINE PHOSPHATASE 87 U/L (38-133); ALT/SGPT 29 U/L (7-56); AST/SGOT 30 U/L (15-59); BILIRUBIN,TOTAL 0.5 mg/dL (0.2-1.3); BLOOD UREA NITROGEN 12 mg/dL (7-21); CALCIUM 8.6 mg/dL (8.4-10.5); CARBON DIOXIDE 31 mmol/L (21-33); CHLORIDE 99 mmol/L (98-107); GFR AFRICAN-AMERICAN > 60; GLUCOSE,RANDOM 292 mg/dL (70-110); POTASSIUM 4.1 mmol/L (3.6-5.0); SODIUM 135 mmol/L (132-148); TOTAL PROTEIN 6.8 g/dL (5.8-8.3)
[2016-12-16] MEDS: Insulin Reg-HIGH-Coverage SC SCH ×4 (08:19→22:11)
--- NOTE | 2016-12-16 09:17 | CP.PCM.PN ---
Subjective - Date & Time of Evaluation Date of Evaluation: 12/16/16 Time of Evaluation: 09:13 - Subjective Subjective: General Surgery Progress Note for Dr. Jennings This 61M was seen and examined this AM at bedside. He reports no acute events overnight. His pain is controlled and his is able to ambulate with his boot. Denies F/C/N/V/D/CP/SOB. Objective - Vital Signs/Intake and Output Vital Signs (last 24 hours): Temp Pulse Resp BP Pulse Ox 98.4 F 78 20 111/65 97 12/16/16 08:00 12/16/16 08:00 12/16/16 08:00 12/16/16 08:00 12/16/16 08:00 Intake and Output: 12/16/16 12/16/16 06:59 18:59 Intake Total 720 Output Total 1900 Balance -1180 - Medications Medications: Current Medications Carvedilol (Coreg) 12.5 mg PO BID [facility] Last Admin: 12/15/16 17:40 Dose: 12.5 mg Docusate Sodium (Colace) 100 mg PO BID [facility] Last Admin: 12/15/16 17:46 Dose: Not Given Glimepiride (Amaryl) 4 mg PO BID [facility] Last Admin: 12/15/16 17:38 Dose: 4 mg Heparin Sodium (Porcine) (Heparin) 5,000 units SC Q8 [facility] PRN Reason: Protocol Last Admin: 12/16/16 05:57 Dose: 5,000 units Home Med (Home Med) 1 unit PO DAILY [facility] Last Admin: 12/15/16 12:44 Dose: 1 unit Meropenem 1g/NS 100mL IVPB (Meropenem 1g/Ns 100ml Ivpb) 1 gm in 100 mls @ 100 mls/hr IVPB Q8 [facility] PRN Reason: Protocol Stop: 12/17/16 22:01 Last Admin: 12/16/16 05:58 Dose: 100 mls/hr Linezolid (Zyvox 600mg/300ml D5w) 600 mg in 300 mls @ 200 mls/hr IVPB Q12 [facility] PRN Reason: Protocol Stop: 12/17/16 22:01 Last Admin: 12/15/16 21:12 Dose: 200 mls/hr Micafungin Sodium 100 mg/ (Sodium Chloride) 100 mls @ 100 mls/hr IV DAILY [facility] PRN Reason: Protocol Stop: 12/20/16 10:01 Last Admin: 12/15/16 12:44 Dose: 100 mls/hr Insulin Human Regular (Humulin R High) 0 units SC ACHS [facility] PRN Reason: Protocol Last Admin: 12/16/16 08:19 Dose: 10 units Lisinopril (Zestril) 5 mg PO DAILY [facility] Last Admin: 12/15/16 10:50 Dose: 5 mg Magnesium Hydroxide (Milk Of Magnesia) 30 ml PO DAILY PRN PRN Reason: Constipation Metformin HCl (Glucophage) 500 mg PO BID [facility] Last Admin: 12/15/16 17:40 Dose: 500 mg Pantoprazole Sodium (Protonix Inj) 40 mg IVP DAILY [facility] Last Admin: 12/15/16 10:51 Dose: 40 mg - Labs Labs: 12/16/16 06:00 12/16/16 06:00 - Constitutional Appears: No Acute Distress - Head Exam Head Exam: ATRAUMATIC, NORMAL INSPECTION, NORMOCEPHALIC - ENT Exam ENT Exam: Mucous Membranes Moist, Normal Exam - Neck Exam Neck Exam: Full ROM, Normal Inspection. - Respiratory Exam Respiratory Exam: NORMAL BREATHING PATTERN - Cardiovascular Exam Cardiovascular Exam: REGULAR RHYTHM - GI/Abdominal Exam GI & Abdominal Exam: Soft, absent: Tenderness - Extremities Exam Extremities Exam: absent: Full ROM, Normal Capillary Refill, Normal Inspection Additional comments: R foot dressing C/D/I. b/l legs edema - Back Exam Back Exam: NORMAL INSPECTION - Neurological Exam Neurological Exam: Alert, Awake, CN II-XII Intact, Oriented x3 - Psychiatric Exam Psychiatric exam: Normal Affect, Normal Mood - Skin Skin Exam: Dry, Erythema, Intact, Warm Assessment and Plan - Assessment and Plan (Free Text) Assessment: 61M with necrotizing infection of the R foot s/p I&D; POD#5 Plan: -OR Tues for R foot debridement : NPO after midnight - Will continue local wound care with packing/dressing changes - Cont IV ABX as per ID recs - d/w Dr. Dick Bonilla PGY-6
[2016-12-16] MEDS: TRADJENTA 5MG PO SCH (09:53)
[2016-12-16] MEDS: Micafungin 100 MG in Sodium Chloride 0.9% 100 ML IV SCH (09:54)
[2016-12-16] MEDS: Linezolid 600 mg in D5W 300 ml 600 MG/300 ML BAG IVPB SCH ×2 (10:57→21:41)
--- NOTE | 2016-12-16 13:32 | PN ---
DATE: 12/16/2016 The patient is a 61-year-old male who was admitted to the [facility] 6 days ago with a diabetic ketoacidosis and cellulitis of the right lower extremity. He had been complaining. He was found to have gas formation in the area of the right foot on CAT scan when admitted. He is b eing followed by infectious disease as well as surgery. He is being treated with Merrem and Zyvox as well as micafungin. He was treated with intravenous fluids and intravenous insulin in the intensive care unit for a few days for his diabetic ketoacidosis. At this point, he is on the medical floor. He is taking his glimepiride and Tradjenta as he was at home. We have added Glucophage 500 mg twice a day. He is also getting high-dose regular insulin coverage on his finger sticks before meals and at bedtime. The patient also has a history of prostatic carcinoma, status post radiation therapy, wh ich is not a problem at this time. When seen today, the patient is sitting up in a chair. He was ta lking to his on the phone. He is awake, alert, and oriented. He is feeling well. Spirits are good. PHYSICAL EXAMINATION: Unchanged except that there is decreased cellulitis in the right anterior tibi al region as well as decreased cellulitis and swelling in his toes. The patient had already underwent surgical debridement of his foot wounds by Dr. Jennings. His dressi ng is intact. He is wearing a postop boot and we are planning on possible further debridement of his wounds in the morning. LABORATORY DATA: This morning's show that his white blood cell count is 10.3, hemoglobin and hematoc rit are 10.7 and 32.8, platelet count is 291. Sodium is 135, potassium 4.1, blood urea nitrogen is 1 2, creatinine 0.9. His glucose this morning was 306. VITAL SIGNS: Stable. So, we are continuing to follow the patient closely. We are expecting a drop in the glucose as Roxy davies kicks in and we are expecting further debridement of his foot wounds in the a.m. Gustavo Desai MD cc: [phone] TT: 12/16/2016 13:31:14 Confirmation # [id number] Dictation # [id number] en
--- NOTE | 2016-12-16 13:40 | PN ---
DATE: 12/16/2016 The patient is in bed in no acute distress, nontoxic. PHYSICAL EXAMINATION: VITAL SIGNS: Temperature is 98, blood pressure is 111/60, respiratory rate of 16. HEENT: Unremarkable. NECK: Supple. LUNGS: Have decreased breath sounds. HEART: Normal S1, S2. ABDOMEN: Soft, nontender. LABORATORY DATA: Reveals the patient's white count is 10.3, hemoglobin of 10. Chemistries are noted . Microbiology is reviewed. Beta hemolytic group B strep in addition to a Shanika tropicalis from t he foot and there is lactobacillus in the blood. Review of orders reveals the patient to be on merop enem, Mycamine and Zyvox. ASSESSMENT AND PLAN: This is a 61-year-old with severe sepsis, acute renal failure, gangrene of the right foot, cellulitis status post debridement and post procedure day #5 of lactobacillus bacteremia, Zyvox, meropenem, and day #6 of antibiotics and Mycamine. We will follow closely. The patient is s cheduled for OR tomorrow for a possible debridement. Aaron Em MD cc: [phone] TT: 12/16/2016 13:40:40 Confirmation # [id number] Dictation # [id number]
--- NOTE | 2016-12-17 06:09 | CP.PCM.PN ---
Subjective - Date & Time of Evaluation Date of Evaluation: 12/17/16 Time of Evaluation: 06:08 - Subjective Subjective: Heparin lock was inserted in left hand dorsum. # 22 was used. DX:Poor venous access. Objective - Vital Signs/Intake and Output Vital Signs (last 24 hours): Temp Pulse Resp BP Pulse Ox 98.5 F 88 20 133/81 97 12/16/16 16:00 12/16/16 17:20 12/16/16 16:00 12/16/16 17:20 12/16/16 16:00 Intake and Output: 12/16/16 12/17/16 18:59 06:59 Intake Total 840 660 Output Total 650 950 Balance 190 -290 - Medications Medications: Current Medications Carvedilol (Coreg) 12.5 mg PO BID [facility] Last Admin: 12/16/16 17:20 Dose: Not Given Docusate Sodium (Colace) 100 mg PO BID [facility] Last Admin: 12/16/16 17:08 Dose: Not Given Glimepiride (Amaryl) 4 mg PO BID [facility] Last Admin: 12/16/16 17:08 Dose: 4 mg Heparin Sodium (Porcine) (Heparin) 5,000 units SC Q8 [facility] PRN Reason: Protocol Last Admin: 12/16/16 13:11 Dose: Not Given Home Med (Home Med) 1 unit PO DAILY [facility] Last Admin: 12/16/16 09:53 Dose: 1 unit Meropenem 1g/NS 100mL IVPB (Meropenem 1g/Ns 100ml Ivpb) 1 gm in 100 mls @ 100 mls/hr IVPB Q8 [facility] PRN Reason: Protocol Stop: 12/17/16 22:01 Last Admin: 12/16/16 21:39 Dose: 100 mls/hr Linezolid (Zyvox 600mg/300ml D5w) 600 mg in 300 mls @ 200 mls/hr IVPB Q12 [facility] PRN Reason: Protocol Stop: 12/17/16 22:01 Last Admin: 12/16/16 21:41 Dose: 200 mls/hr Micafungin Sodium 100 mg/ (Sodium Chloride) 100 mls @ 100 mls/hr IV DAILY [facility] PRN Reason: Protocol Stop: 12/20/16 10:01 Last Admin: 12/16/16 09:54 Dose: 100 mls/hr Insulin Human Regular (Humulin R High) 0 units SC ACHS [facility] PRN Reason: Protocol Last Admin: 12/16/16 22:11 Dose: Not Given Lisinopril (Zestril) 5 mg PO DAILY [facility] Last Admin: 12/16/16 09:59 Dose: Not Given Magnesium Hydroxide (Milk Of Magnesia) 30 ml PO DAILY PRN PRN Reason: Constipation Metformin HCl (Glucophage) 500 mg PO BID [facility] Last Admin: 12/16/16 17:07 Dose: 500 mg Pantoprazole Sodium (Protonix Inj) 40 mg IVP DAILY [facility] Last Admin: 12/16/16 09:52 Dose: 40 mg - Labs Labs: 12/16/16 06:00 12/16/16 06:00
[2016-12-17] MEDS: Meropenem 1g/NS 100mL IVPB 1 GM/100 ML PIGGYBACK IVPB SCH ×3 (06:23→22:24)
[2016-12-17 07:20] LABS: ADD MANUAL DIFF? NO
[2016-12-17 07:37] LABS: BASO # 0.02 K/mm3 (0.0-2.0); BASO % 0.2 % (0.0-3.0); EOS # 0.1 (0.0-0.7); EOS % 0.9 % (1.5-5.0); GRAN # 8.54 (1.4-6.5); GRAN % 75.6 % (50.0-68.0); INR 1.06 (0.93-1.08); LYMPH % 8.9 % (22.0-35.0); MEAN CELL VOLUME 84.7 fL (80.0-105.0); MEAN CORPUSCULAR HEMOGLOBIN 27.5 pg (25.0-35.0); MEAN CORPUSCULAR HGB CONC 32.5 g/dl (31.0-37.0); MEAN PLATELET VOLUME 10.6 fl (7.0-11.0); MONO # 1.6 (0.1-0.6); MONO % 14.4 % (1.0-6.0); PARTIAL THROMBOPLASTIN TIME 27.8 Seconds (23.7-30.8); PLATELET COUNT 311 10^3/uL (120.0-450.0); RED CELL DISTRIBUTION WIDTH 13.5 % (11.5-14.5); WHITE BLOOD COUNT 11.3 10^3/ul (4.5-11.0)
[2016-12-17 07:44] LABS: ALB/GLOB RATIO 0.6 (1.1-1.8); ALKALINE PHOSPHATASE 88 U/L (38-133); ALT/SGPT 31 U/L (7-56); AST/SGOT 31 U/L (15-59); BILIRUBIN,TOTAL 0.4 mg/dL (0.2-1.3); BLOOD UREA NITROGEN 10 mg/dL (7-21); CALCIUM 8.5 mg/dL (8.4-10.5); CARBON DIOXIDE 30 mmol/L (21-33); CHLORIDE 100 mmol/L (98-107); GFR AFRICAN-AMERICAN > 60; GLUCOSE,RANDOM 196 mg/dL (70-110); POTASSIUM 3.7 mmol/L (3.6-5.0); SODIUM 134 mmol/L (132-148); TOTAL PROTEIN 6.7 g/dL (5.8-8.3)
[2016-12-17] MEDS: Insulin Reg-HIGH-Coverage SC SCH ×4 (08:25→22:27)
[2016-12-17] MEDS: Linezolid 600 mg in D5W 300 ml 600 MG/300 ML BAG IVPB SCH ×2 (09:07→22:29)
[2016-12-17] MEDS: Micafungin 100 MG in Sodium Chloride 0.9% 100 ML IV SCH (10:57)
[2016-12-17] MEDS ORDERED: Insulin Regular 1 UNITS/0.01 ML ML IV ONE (11:10)
[2016-12-17] MEDS ORDERED: Insulin Regular 100 units/ml ONE (11:28)
[2016-12-17] MEDS ORDERED: Propofol 10 mg/ml Inj (20 ML) ONE (12:24)
[2016-12-17] MEDS ORDERED: Midazolam 2 MG/2 ML VIAL ONE (12:24)
[2016-12-17] MEDS ORDERED: Lactated Ringer's 1,000 ML IV SCH (13:27)
[2016-12-17] MEDS ORDERED: HYDROmorphone 0.5 mg/0.5 ml ISec IVP PRN (13:27)
[2016-12-17] MEDS ORDERED: Oxycodone/Acetaminophen 5/325 mg Tab PO PRN (13:27)
--- NOTE | 2016-12-17 13:30 | PCM.SURG1 ---
Surgeon's Initial Post Op Note - Surgeon's Notes Surgeon: Dr. Jennings Field Naturalist: Dr. Salcido PGY2, Dr. Henning PGY1 Type of Anesthesia: General LMA Pre-Operative Diagnosis: Right foot wound Operative Findings: see dictation Post-Operative Diagnosis: same Operation Performed: wound debridement and wound vac placement Specimen/Specimens Removed: none Estimated Blood Loss: EBL {In ML}: 10 Post-Op Condition: Good Date of Surgery/Procedure: 12/17/16 Time of Surgery/Procedure: 13:00
--- NOTE | 2016-12-17 13:43 | CP.PCM.PN ---
Subjective - Date & Time of Evaluation Date of Evaluation: 12/17/16 Time of Evaluation: 09:10 - Subjective Subjective: Patient is for OR today, no fevers overnight, no diarrhea, no pain in the foot currently. Objective - Vital Signs/Intake and Output Vital Signs (last 24 hours): Temp Pulse Resp BP Pulse Ox 99.3 F 85 20 132/83 96 12/17/16 10:51 12/17/16 10:51 12/17/16 10:51 12/17/16 10:51 12/17/16 10:51 Intake and Output: 12/17/16 12/17/16 06:59 18:59 Intake Total 660 Output Total 950 Balance -290 - Medications Medications: Current Medications Carvedilol (Coreg) 12.5 mg PO BID [facility] Last Admin: 12/17/16 09:03 Dose: Not Given Docusate Sodium (Colace) 100 mg PO BID [facility] Last Admin: 12/17/16 09:03 Dose: Not Given Glimepiride (Amaryl) 4 mg PO BID [facility] Last Admin: 12/17/16 09:03 Dose: Not Given Heparin Sodium (Porcine) (Heparin) 5,000 units SC Q8 [facility] PRN Reason: Protocol Last Admin: 12/16/16 13:11 Dose: Not Given Home Med (Home Med) 1 unit PO DAILY [facility] Last Admin: 12/16/16 09:53 Dose: 1 unit Hydromorphone HCl (Dilaudid) 0.5 mg IVP Q15M PRN PRN Reason: Pain, moderate (4-7) Stop: 12/17/16 15:27 Meropenem 1g/NS 100mL IVPB (Meropenem 1g/Ns 100ml Ivpb) 1 gm in 100 mls @ 100 mls/hr IVPB Q8 [facility] PRN Reason: Protocol Stop: 12/17/16 22:01 Last Admin: 12/17/16 06:23 Dose: 100 mls/hr Linezolid (Zyvox 600mg/300ml D5w) 600 mg in 300 mls @ 200 mls/hr IVPB Q12 [facility] PRN Reason: Protocol Stop: 12/17/16 22:01 Last Admin: 12/17/16 09:07 Dose: 200 mls/hr Micafungin Sodium 100 mg/ (Sodium Chloride) 100 mls @ 100 mls/hr IV DAILY [facility] PRN Reason: Protocol Stop: 12/20/16 10:01 Last Admin: 12/17/16 10:57 Dose: 100 mls/hr Lactated Ringer's (Lactated Ringer's) 1,000 mls @ 75 mls/hr IV .[id number] [facility] Stop: 12/17/16 15:28 Insulin Human Regular (Humulin R High) 0 units SC ACHS [facility] PRN Reason: Protocol Last Admin: 12/17/16 11:34 Dose: Not Given Lisinopril (Zestril) 5 mg PO DAILY [facility] Last Admin: 12/17/16 09:07 Dose: Not Given Magnesium Hydroxide (Milk Of Magnesia) 30 ml PO DAILY PRN PRN Reason: Constipation Metformin HCl (Glucophage) 500 mg PO BID [facility] Last Admin: 12/17/16 09:03 Dose: Not Given Oxycodone/Acetaminophen (Percocet 5/325 Mg Tab) 1 tab PO Q4H PRN PRN Reason: Pain, moderate (4-7) Stop: 12/20/16 13:28 Pantoprazole Sodium (Protonix Inj) 40 mg IVP DAILY [facility] Last Admin: 12/17/16 09:06 Dose: 40 mg - Labs Labs: 12/17/16 07:00 12/17/16 07:00 PT 11.4 Seconds (9.9-11.8) 12/17/16 07:00 INR 1.06 (0.93-1.08) 12/17/16 07:00 APTT 27.8 Seconds (23.7-30.8) 12/17/16 07:00 - Constitutional Appears: Non-toxic, No Acute Distress - Head Exam Head Exam: NORMAL INSPECTION - Respiratory Exam Respiratory Exam: Decreased Breath Sounds - Cardiovascular Exam Cardiovascular Exam: +S1, +S2 - GI/Abdominal Exam GI & Abdominal Exam: Soft. absent: Tenderness - Extremities Exam Additional comments: right foot with dry dressings in place Assessment and Plan - Assessment and Plan (Free Text) Plan: Assessment severe sepsis with acute renal failure due to probable gas gangrene of the right foot with associated cellulitis of the right leg in this patient with infected diabetic foot ulcers S/P debridement POD #6, growing Shanika tropicalis and Group B strep, for repeat OR today obesity with BMI 35 DM HTN Plan continue Zyvox and Merrem day 7 and Mycamine pending OR results (of today) will continue to monitor clinically
[2016-12-17] MEDS: TRADJENTA 5MG PO SCH (15:18)
[2016-12-17 16:39] VITALS: RESP 20
--- NOTE | 2016-12-17 22:26 | PN ---
DATE: 12/17/2016 Admitted with cellulitis. The patient was in the operating room today for repeat debridement of his leg ulcer. We will continue antibiotics and discuss with other consultants involved. Raji Desai MD cc: [phone] TT: 12/17/2016 22:26:03 Confirmation # [id number] Dictation # [id number]
[2016-12-18 07:17] LABS: ADD MANUAL DIFF? NO
[2016-12-18 07:31] LABS: BASO # 0.01 K/mm3 (0.0-2.0); BASO % 0.1 % (0.0-3.0); EOS # 0.1 (0.0-0.7); EOS % 0.7 % (1.5-5.0); GRAN % 79.2 % (50.0-68.0); HEMATOCRIT 33.3 % (42.0-52.0); LYMPH # 1.2 (1.2-3.4); LYMPH % 11.2 % (22.0-35.0); MEAN CORPUSCULAR HEMOGLOBIN 27.4 pg (25.0-35.0); MEAN CORPUSCULAR HGB CONC 31.8 g/dl (31.0-37.0); MEAN PLATELET VOLUME 10.4 fl (7.0-11.0); MONO % 8.8 % (1.0-6.0); PLATELET COUNT 331 10^3/uL (120.0-450.0); RED CELL DISTRIBUTION WIDTH 13.7 % (11.5-14.5); WHITE BLOOD COUNT 10.9 10^3/ul (4.5-11.0)
[2016-12-18] MEDS: Insulin Reg-HIGH-Coverage SC SCH ×4 (08:25→22:01)
[2016-12-18] MEDS: TRADJENTA 5MG PO SCH (10:06)
[2016-12-18] MEDS: Micafungin 100 MG in Sodium Chloride 0.9% 100 ML IV SCH (10:07)
--- NOTE | 2016-12-18 11:32 | PN ---
DATE: 12/18/2016 The patient is a 61-year-old male with a history of non-insulin dependent diabetes mellitus who was a dmitted to the [facility] 8 days ago with diabetic ketoacidosis and cellulitis of the right lower extremity. He received intravenous insulin and intravenous fluids in the intensiv e care unit. His glucose was quickly stabilized. He is being treated with Merrem and Zyvox as well as micafungin and is currently on the med/surgical floor. He is taking oral Tradjenta, Glucophage an d glimepiride to control his insulin. His fingerstick glucoses still seems to be running in the low 300 range, however. 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 During his hospital sta y, he underwent surgical debridement of his right foot wound twice. Yesterday a wound VAC was placed on the right foot. When seen today, the patient is sitting up in a chair. He is feeling well. Per haps slightly depressed over his medical condition; however, his overall condition is good. PHYSICAL EXAMINATION: LUNGS: Clear. HEART: Regular. ABDOMEN: Soft and nontender. EXTREMITIES: Wound VAC. Podiatric boot and dressing are in place on the right foot. The cellulitis of the pretibial area has cleared. The cellulitis of 4 toes seems to have cleared; however, the rig ht first toe, from what is visible from under the dressing, seems to be quite erythematous. We are continuing with the current regimen and wound care. I am considering adding Prandin to his re gimen to better control his glucose levels. We will continue to follow the patient closely. Gustavo Desai MD cc: [phone] TT: 12/18/2016 11:31:35 Confirmation # [id number] Dictation # [id number] jocelyn
--- NOTE | 2016-12-18 11:53 | CP.PCM.PN ---
Subjective - Date & Time of Evaluation Date of Evaluation: 12/18/16 Time of Evaluation: 11:50 - Subjective Subjective: General surgery progress note for Ottoniel Carpenter PGY1 Patient seen and examined this morning in conjunction with surgical team. Patient is s/p wound debridement and wound vac placement (POD #1). No acute overnight events or new complaints. Denies chest pain, palpitations, SOB. Patient will require jail IV antibiotics and will require PICC line placement. IR consult placed. Objective - Vital Signs/Intake and Output Vital Signs (last 24 hours): Temp Pulse Resp BP Pulse Ox 97.8 F 89 20 135/83 95 12/18/16 08:15 12/18/16 10:08 12/18/16 08:15 12/18/16 10:08 12/18/16 08:15 Intake and Output: 12/18/16 12/18/16 06:59 18:59 Intake Total 600 180 Output Total 700 200 Balance -100 -20 - Medications Medications: Current Medications Carvedilol (Coreg) 12.5 mg PO BID [facility] Last Admin: 12/18/16 10:06 Dose: 12.5 mg Docusate Sodium (Colace) 100 mg PO BID [facility] Last Admin: 12/18/16 10:05 Dose: Not Given Glimepiride (Amaryl) 4 mg PO BID [facility] Last Admin: 12/18/16 10:05 Dose: 4 mg Heparin Sodium (Porcine) (Heparin) 5,000 units SC Q8 [facility] PRN Reason: Protocol Last Admin: 12/18/16 06:13 Dose: 5,000 units Home Med (Home Med) 1 unit PO DAILY [facility] Last Admin: 12/18/16 10:06 Dose: 1 unit Micafungin Sodium 100 mg/ (Sodium Chloride) 100 mls @ 100 mls/hr IV DAILY [facility] PRN Reason: Protocol Stop: 12/20/16 10:01 Last Admin: 12/18/16 10:07 Dose: 100 mls/hr Insulin Human Regular (Humulin R High) 0 units SC ACHS [facility] PRN Reason: Protocol Last Admin: 12/18/16 08:25 Dose: 10 units Lisinopril (Zestril) 5 mg PO DAILY [facility] Last Admin: 12/18/16 10:08 Dose: 5 mg Magnesium Hydroxide (Milk Of Magnesia) 30 ml PO DAILY PRN PRN Reason: Constipation Metformin HCl (Glucophage) 500 mg PO BID [facility] Last Admin: 12/18/16 10:06 Dose: 500 mg Oxycodone/Acetaminophen (Percocet 5/325 Mg Tab) 1 tab PO Q4H PRN PRN Reason: Pain, moderate (4-7) Stop: 12/20/16 13:28 Pantoprazole Sodium (Protonix Inj) 40 mg IVP DAILY [facility] Last Admin: 12/18/16 10:08 Dose: 40 mg Repaglinide (Prandin) 2 mg PO AC [facility] - Labs Labs: 12/18/16 05:00 12/17/16 07:00 PT 11.4 Seconds (9.9-11.8) 12/17/16 07:00 INR 1.06 (0.93-1.08) 12/17/16 07:00 APTT 27.8 Seconds (23.7-30.8) 12/17/16 07:00 - Constitutional Appears: Non-toxic, No Acute Distress - Head Exam Head Exam: ATRAUMATIC, NORMAL INSPECTION, NORMOCEPHALIC - Eye Exam Eye Exam: EOMI, PERRL - ENT Exam ENT Exam: Mucous Membranes Moist - Respiratory Exam Respiratory Exam: Clear to Ausculation Bilateral. absent: Rales, Rhonchi, Wheezes - Cardiovascular Exam Cardiovascular Exam: RRR, +S1, +S2. absent: Gallop, Rubs - GI/Abdominal Exam GI & Abdominal Exam: Soft. absent: Distended, Firm, Guarding, Rigid, Tenderness , Rebound - Extremities Exam Additional comments: right lower extremity wound vac in place - Neurological Exam Neurological Exam: Alert, Awake, Oriented x3 - Psychiatric Exam Psychiatric exam: Normal Affect, Normal Mood - Skin Skin Exam: Dry, Intact, Normal Color, Warm Assessment and Plan - Assessment and Plan (Free Text) Plan: 61M with necrotizing infection of the R foot s/p wound debridement and wound vac placement (POD #1) -Patient is s/p wound debridement and wound vac placement (POD #1) -As per ID, patient will require terminal manager IV antibiotics and will require a PICC line placement; IR consulted -Patient failed wet to dry dressing changes and sarah drain placement -He will require wound vac as an outpatient and visiting nurse for wound inspection and dressing changes approximately every 2-3 days -Wound measures approximately 12cm x 5cm x 2cm -Case discussed with high risk case manager -Patient should follow up with Dr. Jennings as an outpatient within 1-2 weeks upon discharge Case discussed with attending, Dr. Dick Harrington PGY1
--- NOTE | 2016-12-18 18:33 | CP.PCM.PN ---
Subjective - Date & Time of Evaluation Date of Evaluation: 12/18/16 Time of Evaluation: 10:30 - Subjective Subjective: Less pain in the right foot, had debridement and wound vacuum placement yesterday, no fevers overnight. Objective - Vital Signs/Intake and Output Vital Signs (last 24 hours): Temp Pulse Resp BP Pulse Ox 98.8 F 86 20 112/63 96 12/18/16 17:02 12/18/16 16:00 12/18/16 16:00 12/18/16 16:00 12/18/16 16:00 Intake and Output: 12/18/16 12/18/16 06:59 18:59 Intake Total 600 400 Output Total 700 600 Balance -100 -200 - Medications Medications: Current Medications Carvedilol (Coreg) 12.5 mg PO BID [facility] Last Admin: 12/18/16 17:14 Dose: Not Given Docusate Sodium (Colace) 100 mg PO BID [facility] Last Admin: 12/18/16 17:14 Dose: Not Given Glimepiride (Amaryl) 4 mg PO BID [facility] Last Admin: 12/18/16 17:14 Dose: 4 mg Heparin Sodium (Porcine) (Heparin) 5,000 units SC Q8 [facility] PRN Reason: Protocol Last Admin: 12/18/16 13:30 Dose: 5,000 units Home Med (Home Med) 1 unit PO DAILY [facility] Last Admin: 12/18/16 10:06 Dose: 1 unit Fluconazole (Diflucan Iv 200 Mg/100 Ml Ns) 100 mls @ 100 mls/hr IVPB DAILY [facility] PRN Reason: Protocol Meropenem 1g/NS 100mL IVPB (Meropenem 1g/Ns 100ml Ivpb) 100 mls @ 100 mls/hr IVPB Q8 [facility] PRN Reason: Protocol Stop: 12/25/16 22:01 Insulin Human Regular (Humulin R High) 0 units SC ACHS [facility] PRN Reason: Protocol Last Admin: 12/18/16 17:14 Dose: 7 units Lisinopril (Zestril) 5 mg PO DAILY [facility] Last Admin: 12/18/16 10:08 Dose: 5 mg Magnesium Hydroxide (Milk Of Magnesia) 30 ml PO DAILY PRN PRN Reason: Constipation Metformin HCl (Glucophage) 500 mg PO BID [facility] Last Admin: 12/18/16 17:14 Dose: 500 mg Oxycodone/Acetaminophen (Percocet 5/325 Mg Tab) 1 tab PO Q4H PRN PRN Reason: Pain, moderate (4-7) Stop: 12/20/16 13:28 Pantoprazole Sodium (Protonix Inj) 40 mg IVP DAILY [facility] Last Admin: 12/18/16 10:08 Dose: 40 mg Repaglinide (Prandin) 2 mg PO AC [facility] Last Admin: 12/18/16 17:15 Dose: 2 mg - Labs Labs: 12/18/16 05:00 12/17/16 07:00 PT 11.4 Seconds (9.9-11.8) 12/17/16 07:00 INR 1.06 (0.93-1.08) 12/17/16 07:00 APTT 27.8 Seconds (23.7-30.8) 12/17/16 07:00 - Constitutional Appears: Non-toxic, No Acute Distress - Head Exam Head Exam: NORMAL INSPECTION - ENT Exam ENT Exam: Mucous Membranes Moist - Neck Exam Neck Exam: absent: Lymphadenopathy, Meningismus - Respiratory Exam Respiratory Exam: Decreased Breath Sounds - Cardiovascular Exam Cardiovascular Exam: +S1, +S2 - GI/Abdominal Exam GI & Abdominal Exam: Soft. absent: Tenderness Assessment and Plan - Assessment and Plan (Free Text) Plan: Assessment severe sepsis with acute renal failure (now resolved) due to probable gas gangrene of the right foot with associated cellulitis of the right leg in this patient with infected diabetic foot ulcers S/P debridement POD #7, growing Shanika tropicalis and Group B strep, S/P repeat debridement and wound vacuum placement POD #1 obesity with BMI 35 DM HTN Plan continue Merrem day and switched Mycamine to Diflucan - discussed with Surgery - on repeat debridement, there are still necrotic tissues, up to the tendons - would recommend 4-6 weeks of Ertapenem 1 gm IV daily and Fluconazole 200 mg daily, with weekly ESR, CRP, CBC, CMP will continue to monitor clinically
[2016-12-18] MEDS: Meropenem 1g/NS 100mL IVPB 1 GM/100 ML PIGGYBACK IVPB SCH (22:02)
[2016-12-19] MEDS: Meropenem 1g/NS 100mL IVPB 1 GM/100 ML PIGGYBACK IVPB SCH (05:53)
[2016-12-19] MEDS ORDERED: Lidocaine 2% Inj (20ml) ONE (08:21)
[2016-12-19] MEDS: Insulin Reg-HIGH-Coverage SC SCH ×5 (08:45→21:40)
--- NOTE | 2016-12-19 08:52 | CP.PCM.PN ---
Subjective - Date & Time of Evaluation Date of Evaluation: 12/19/16 Time of Evaluation: 08:48 - Subjective Subjective: General surgery progress note for Ottoniel Carpenter PGY1 Patient seen and examined this morning in conjunction with surgical team. Patient is s/p wound debridement and wound vac placement (POD #2). No acute overnight events or new complaints. Denies chest pain, palpitations, SOB. Patient to undergo PICC line placement by IR. Wound vac to be changed today due to mechanical issues. Objective - Vital Signs/Intake and Output Vital Signs (last 24 hours): Temp Pulse Resp BP Pulse Ox 98.6 F 85 20 128/80 96 12/19/16 08:00 12/19/16 08:00 12/19/16 08:00 12/19/16 08:00 12/19/16 08:00 Intake and Output: 12/19/16 12/19/16 06:59 18:59 Intake Total 840 Output Total 1920 Balance -1080 - Medications Medications: Current Medications Carvedilol (Coreg) 12.5 mg PO BID [facility] Last Admin: 12/18/16 17:14 Dose: Not Given Docusate Sodium (Colace) 100 mg PO BID [facility] Last Admin: 12/18/16 17:14 Dose: Not Given Glimepiride (Amaryl) 4 mg PO BID [facility] Last Admin: 12/18/16 17:14 Dose: 4 mg Heparin Sodium (Porcine) (Heparin) 5,000 units SC Q8 [facility] PRN Reason: Protocol Last Admin: 12/19/16 05:53 Dose: 5,000 units Home Med (Home Med) 1 unit PO DAILY [facility] Last Admin: 12/18/16 10:06 Dose: 1 unit Fluconazole (Diflucan Iv 200 Mg/100 Ml Ns) 100 mls @ 100 mls/hr IVPB DAILY [facility] PRN Reason: Protocol Meropenem 1g/NS 100mL IVPB (Meropenem 1g/Ns 100ml Ivpb) 1 gm in 100 mls @ 100 mls/hr IVPB Q8 [facility] PRN Reason: Protocol Stop: 12/25/16 22:01 Last Admin: 12/19/16 05:53 Dose: 100 mls/hr Insulin Human Regular (Humulin R High) 0 units SC ACHS [facility] PRN Reason: Protocol Last Admin: 12/19/16 08:45 Dose: Not Given Lisinopril (Zestril) 5 mg PO DAILY [facility] Last Admin: 12/18/16 10:08 Dose: 5 mg Magnesium Hydroxide (Milk Of Magnesia) 30 ml PO DAILY PRN PRN Reason: Constipation Metformin HCl (Glucophage) 500 mg PO BID [facility] Last Admin: 12/18/16 17:14 Dose: 500 mg Oxycodone/Acetaminophen (Percocet 5/325 Mg Tab) 1 tab PO Q4H PRN PRN Reason: Pain, moderate (4-7) Stop: 12/20/16 13:28 Pantoprazole Sodium (Protonix Inj) 40 mg IVP DAILY [facility] Last Admin: 12/18/16 10:08 Dose: 40 mg Repaglinide (Prandin) 2 mg PO AC [facility] Last Admin: 12/19/16 08:46 Dose: Not Given - Labs Labs: 12/18/16 05:00 12/17/16 07:00 PT 11.4 Seconds (9.9-11.8) 12/17/16 07:00 INR 1.06 (0.93-1.08) 12/17/16 07:00 APTT 27.8 Seconds (23.7-30.8) 12/17/16 07:00 - Constitutional Appears: Non-toxic, No Acute Distress - Head Exam Head Exam: ATRAUMATIC, NORMAL INSPECTION, NORMOCEPHALIC - Eye Exam Eye Exam: EOMI, PERRL - ENT Exam ENT Exam: Mucous Membranes Moist - Respiratory Exam Respiratory Exam: Clear to Ausculation Bilateral. absent: Rales, Rhonchi, Wheezes - Cardiovascular Exam Cardiovascular Exam: RRR, +S1, +S2. absent: Gallop, Rubs - GI/Abdominal Exam GI & Abdominal Exam: Soft. absent: Distended, Firm, Guarding, Rigid, Tenderness , Rebound - Extremities Exam Additional comments: right lower extremity wound vac in place - Neurological Exam Neurological Exam: Alert, Awake, Oriented x3 - Psychiatric Exam Psychiatric exam: Normal Affect, Normal Mood - Skin Skin Exam: Dry, Intact, Normal Color, Warm Assessment and Plan - Assessment and Plan (Free Text) Plan: 61M with necrotizing infection of the R foot s/p wound debridement and wound vac placement -Patient is s/p repeat wound debridement and wound vac placement (POD #2) -Patient to undergo PICC line placement by IR given the need for intermediate IV antibiotics; IR - Dr. Callahan consulted -Patient will require wound vac as an outpatient and visiting nurse for wound inspection and dressing changes approximately every 2-3 days -Wound measures approximately 12cm x 5cm x 2cm -Case previously discussed with correctional casework specialist -Recommend follow up with Dr. Jennings as an outpatient within 1-2 weeks of discharge Case discussed with attending, Dr. Dick Harrington PGY1
[2016-12-19] MEDS ORDERED: Fluconazole IV 200mg/100 ml NS 100 ML IVPB SCH (10:00)
[2016-12-19] MEDS: TRADJENTA 5MG PO SCH (10:03)
--- NOTE | 2016-12-19 11:02 | CP.PCM.PN ---
Subjective - Date & Time of Evaluation Date of Evaluation: 12/19/16 Time of Evaluation: 10:00 - Subjective Subjective: Comfortable, afebrile, not in distress, less pain in the right foot. Objective - Vital Signs/Intake and Output Vital Signs (last 24 hours): Temp Pulse Resp BP Pulse Ox 98.6 F 85 20 128/80 96 12/19/16 08:00 12/19/16 08:00 12/19/16 08:00 12/19/16 08:00 12/19/16 08:00 Intake and Output: 12/19/16 12/19/16 06:59 18:59 Intake Total 840 Output Total 1920 Balance -1080 - Medications Medications: Current Medications Carvedilol (Coreg) 12.5 mg PO BID [facility] Last Admin: 12/19/16 10:56 Dose: Not Given Docusate Sodium (Colace) 100 mg PO BID [facility] Last Admin: 12/19/16 10:57 Dose: Not Given Glimepiride (Amaryl) 4 mg PO BID [facility] Last Admin: 12/19/16 10:00 Dose: 4 mg Heparin Sodium (Porcine) (Heparin) 5,000 units SC Q8 [facility] PRN Reason: Protocol Last Admin: 12/19/16 05:53 Dose: 5,000 units Home Med (Home Med) 1 unit PO DAILY [facility] Last Admin: 12/19/16 10:03 Dose: 1 unit Fluconazole (Diflucan Iv 200 Mg/100 Ml Ns) 100 mls @ 100 mls/hr IVPB DAILY [facility] PRN Reason: Protocol Last Admin: 12/19/16 10:02 Dose: 100 mls/hr Meropenem 1g/NS 100mL IVPB (Meropenem 1g/Ns 100ml Ivpb) 1 gm in 100 mls @ 100 mls/hr IVPB Q8 [facility] PRN Reason: Protocol Stop: 12/25/16 22:01 Last Admin: 12/19/16 05:53 Dose: 100 mls/hr Insulin Human Regular (Humulin R High) 0 units SC ACHS [facility] PRN Reason: Protocol Last Admin: 12/19/16 10:20 Dose: 7 units Lisinopril (Zestril) 5 mg PO DAILY [facility] Last Admin: 12/19/16 10:57 Dose: Not Given Magnesium Hydroxide (Milk Of Magnesia) 30 ml PO DAILY PRN PRN Reason: Constipation Metformin HCl (Glucophage) 500 mg PO BID [facility] Last Admin: 12/19/16 10:03 Dose: 500 mg Oxycodone/Acetaminophen (Percocet 5/325 Mg Tab) 1 tab PO Q4H PRN PRN Reason: Pain, moderate (4-7) Stop: 12/20/16 13:28 Pantoprazole Sodium (Protonix Inj) 40 mg IVP DAILY [facility] Last Admin: 12/19/16 10:04 Dose: 40 mg Repaglinide (Prandin) 2 mg PO AC [facility] Last Admin: 12/19/16 08:46 Dose: Not Given - Labs Labs: 12/18/16 05:00 12/17/16 07:00 PT 11.4 Seconds (9.9-11.8) 12/17/16 07:00 INR 1.06 (0.93-1.08) 12/17/16 07:00 APTT 27.8 Seconds (23.7-30.8) 12/17/16 07:00 - Constitutional Appears: Non-toxic, No Acute Distress - Head Exam Head Exam: NORMAL INSPECTION - ENT Exam ENT Exam: Mucous Membranes Moist - Neck Exam Neck Exam: absent: Lymphadenopathy, Meningismus - Respiratory Exam Respiratory Exam: Decreased Breath Sounds - Cardiovascular Exam Cardiovascular Exam: +S1, +S2 - GI/Abdominal Exam GI & Abdominal Exam: Soft. absent: Tenderness - Extremities Exam Additional comments: right foot with wound vacuum in place Assessment and Plan - Assessment and Plan (Free Text) Plan: Assessment severe sepsis with acute renal failure (now resolved) due to probable gas gangrene of the right foot with associated cellulitis of the right leg in this patient with infected diabetic foot ulcers S/P debridement POD #8, growing Shanika tropicalis and Group B strep, S/P repeat debridement and wound vacuum placement POD #2 obesity with BMI 35 DM HTN Plan continue Merrem and Diflucan - discussed with Surgery - on repeat debridement, there are still necrotic tissues, up to the tendons - would recommend 4-6 weeks of Ertapenem 1 gm IV daily and Fluconazole 200 mg daily, with weekly ESR, CRP, CBC, CMP will continue to monitor clinically
--- NOTE | 2016-12-19 19:53 | VASCULAR ---
PROCEDURE: Ultrasound and fluoroscopically placed left upper extremity PICC line. HISTORY: Right foot abscess. Long-term IV antibiotics. Needs PICC line. PHYSICIAN(S): Toñito Callahan MD. TECHNIQUE: The relative risks and indications of the procedure were explained to the patient and consent obtained. The patient was placed supine on the arteriogram table and the left arm prepped and draped in the usual sterile fashion. A tourniquet was applied to the left axilla. 1% Xylocaine was used to anesthetize the skin and soft tissues at the puncture site above the elbow. The left basilic vein was punctured under direct ultrasound guidance with a micropuncture set. A 0.018 guidewire was advanced centrally and used to measure the length to the SVC/RA junction. A 5 [place] single-lumen PICC line 45 cm long was advanced to the SVC/RA junction. The catheter was flushed and secured. The patient tolerated the procedure well. IMPRESSION: 1. Ultrasound and fluoroscopically placed left upper extremity PICC line. A 5 [place] single-lumen PICC line 45 cm long was advanced to the SVC/RA junction.
[2016-12-20] MEDS: Insulin Reg-HIGH-Coverage SC SCH ×3 (08:01→17:52)
--- NOTE | 2016-12-20 08:27 | CP.PCM.PN ---
Subjective - Date & Time of Evaluation Date of Evaluation: 12/20/16 Time of Evaluation: 06:45 - Subjective Subjective: General Surgery Pt S&E, NAEO. Wound vac functioning well. No other C/O. Answered pt questions Objective - Vital Signs/Intake and Output Vital Signs (last 24 hours): Temp Pulse Resp BP Pulse Ox 98.1 F 86 20 139/86 98 12/19/16 16:00 12/19/16 17:36 12/19/16 16:00 12/19/16 17:36 12/19/16 16:00 Intake and Output: 12/20/16 12/20/16 06:59 18:59 Intake Total 840 Output Total 950 Balance -110 - Medications Medications: Current Medications Carvedilol (Coreg) 12.5 mg PO BID [facility] Last Admin: 12/19/16 17:36 Dose: 12.5 mg Docusate Sodium (Colace) 100 mg PO BID [facility] Last Admin: 12/19/16 17:36 Dose: Not Given Glimepiride (Amaryl) 4 mg PO BID [facility] Last Admin: 12/19/16 17:36 Dose: 4 mg Heparin Sodium (Porcine) (Heparin) 5,000 units SC Q8 [facility] PRN Reason: Protocol Last Admin: 12/20/16 05:43 Dose: 5,000 units Home Med (Home Med) 1 unit PO DAILY [facility] Last Admin: 12/19/16 10:03 Dose: 1 unit Ertapenem 1 gm/ Sodium (Chloride) 50 mls @ 100 mls/hr IVPB Q24H [facility] Last Admin: 12/19/16 13:32 Dose: 100 mls/hr Insulin Human Regular (Humulin R High) 0 units SC ACHS [facility] PRN Reason: Protocol Last Admin: 12/20/16 08:01 Dose: 2 units Lisinopril (Zestril) 5 mg PO DAILY [facility] Last Admin: 12/19/16 10:57 Dose: Not Given Magnesium Hydroxide (Milk Of Magnesia) 30 ml PO DAILY [facility]N PRN Reason: Constipation Metformin HCl (Glucophage) 500 mg PO BID [facility] Last Admin: 12/19/16 17:36 Dose: 500 mg Oxycodone/Acetaminophen (Percocet 5/325 Mg Tab) 1 tab PO Q4H PRN PRN Reason: Pain, moderate (4-7) Stop: 12/20/16 13:28 Pantoprazole Sodium (Protonix Inj) 40 mg IVP DAILY [facility] Last Admin: 12/19/16 10:04 Dose: 40 mg Repaglinide (Prandin) 2 mg PO AC [facility] Last Admin: 12/20/16 08:02 Dose: 2 mg - Labs Labs: 12/18/16 05:00 12/17/16 07:00 PT 11.4 Seconds (9.9-11.8) 12/17/16 07:00 INR 1.06 (0.93-1.08) 12/17/16 07:00 APTT 27.8 Seconds (23.7-30.8) 12/17/16 07:00 - Constitutional Appears: Non-toxic, No Acute Distress - Head Exam Head Exam: ATRAUMATIC, NORMOCEPHALIC - Eye Exam Eye Exam: EOMI. absent: Scleral icterus - Respiratory Exam Respiratory Exam: NORMAL BREATHING PATTERN. absent: Respiratory Distress - Extremities Exam Extremities Exam: Pedal Edema. absent: Tenderness Additional comments: right lower extremity wound vac in place, functioning well. R foot dressing on sole replaced - Neurological Exam Neurological Exam: Alert, Awake, Oriented x3 - Skin Skin Exam: Dry, Warm Assessment and Plan - Assessment and Plan (Free Text) Assessment: 61M with necrotizing infection of the R foot s/p wound debridement and wound vac placement (POD #3) Plan: Abx per ID Ok for DC from a surgical standpoint with wound care nurse to change wound vac Q3D at home Give dressings for sole of R foot. F/U with Dr. Jennings in 1-2 weeks D/W Dr. Dick Hernandez PGY3
[2016-12-20 08:36] VITALS: TEMP 98.4
[2016-12-20] MEDS: TRADJENTA 5MG PO SCH (10:09)
[2016-12-20 16:41] VITALS: O2SAT 97
--- NOTE | 2016-12-20 17:10 | CP.PCM.PN ---
Subjective - Date & Time of Evaluation Date of Evaluation: 12/20/16 Time of Evaluation: 10:35 - Subjective Subjective: Comfortable, less pain in the right foot but noticed the wound vacuum to be loose after some physical therapy. No fevers overnight. Objective - Vital Signs/Intake and Output Vital Signs (last 24 hours): Temp Pulse Resp BP Pulse Ox 98.4 F 84 20 125/84 97 12/20/16 16:00 12/20/16 16:00 12/20/16 16:00 12/20/16 16:00 12/20/16 16:00 Intake and Output: 12/20/16 12/20/16 06:59 18:59 Intake Total 840 Output Total 950 Balance -110 - Medications Medications: Current Medications Carvedilol (Coreg) 12.5 mg PO BID [facility] Last Admin: 12/20/16 10:02 Dose: 12.5 mg Docusate Sodium (Colace) 100 mg PO BID [facility] Last Admin: 12/20/16 10:08 Dose: Not Given Fluconazole (Diflucan) 200 mg PO DAILY [facility] PRN Reason: Protocol Last Admin: 12/20/16 10:00 Dose: 200 mg Glimepiride (Amaryl) 4 mg PO BID [facility] Last Admin: 12/20/16 10:00 Dose: 4 mg Heparin Sodium (Porcine) (Heparin) 5,000 units SC Q8 [facility] PRN Reason: Protocol Last Admin: 12/20/16 05:43 Dose: 5,000 units Home Med (Home Med) 1 unit PO DAILY [facility] Last Admin: 12/20/16 10:09 Dose: 1 unit Ertapenem 1 gm/ Sodium (Chloride) 50 mls @ 100 mls/hr IVPB Q24H [facility] Last Admin: 12/20/16 12:19 Dose: 100 mls/hr Insulin Human Regular (Humulin R High) 0 units SC ACHS [facility] PRN Reason: Protocol Last Admin: 12/20/16 12:19 Dose: 10 units Lisinopril (Zestril) 5 mg PO DAILY [facility] Last Admin: 12/20/16 10:02 Dose: 5 mg Magnesium Hydroxide (Milk Of Magnesia) 30 ml PO DAILY [facility] PRN Reason: Constipation Metformin HCl (Glucophage) 500 mg PO BID [facility] Last Admin: 12/20/16 10:03 Dose: 500 mg Pantoprazole Sodium (Protonix Inj) 40 mg IVP DAILY [facility] Last Admin: 12/20/16 10:03 Dose: 40 mg Repaglinide (Prandin) 2 mg PO AC [facility] Last Admin: 12/20/16 12:32 Dose: 2 mg - Labs Labs: 12/18/16 05:00 12/17/16 07:00 PT 11.4 Seconds (9.9-11.8) 12/17/16 07:00 INR 1.06 (0.93-1.08) 12/17/16 07:00 APTT 27.8 Seconds (23.7-30.8) 12/17/16 07:00 - Constitutional Appears: Non-toxic, No Acute Distress - Head Exam Head Exam: NORMAL INSPECTION - ENT Exam ENT Exam: Mucous Membranes Moist - Neck Exam Neck Exam: absent: Lymphadenopathy, Meningismus - Respiratory Exam Respiratory Exam: Decreased Breath Sounds - Cardiovascular Exam Cardiovascular Exam: +S1, +S2 - GI/Abdominal Exam GI & Abdominal Exam: Soft. absent: Tenderness - Extremities Exam Additional comments: right foot with wound vacuum in place Assessment and Plan - Assessment and Plan (Free Text) Plan: Assessment severe sepsis with acute renal failure (now resolved) due to probable gas gangrene of the right foot with associated cellulitis of the right leg in this patient with infected diabetic foot ulcers S/P debridement POD #8, growing Shanika tropicalis and Group B strep, S/P repeat debridement and wound vacuum placement POD #3 obesity with BMI 35 DM HTN Plan continue Ertapenem and Diflucan - discussed with Surgery - on repeat debridement, there are still necrotic tissues, up to the tendons - would recommend 4-6 weeks of Ertapenem 1 gm IV daily and Fluconazole 200 mg daily, with weekly ESR, CRP, CBC, CMP
[2016-12-20 17:53] VITALS: BP 128/78; PULSE 76
--- NOTE | 2016-12-21 19:14 | PN ---
DATE: 12/19/2016 The patient was seen this morning in room 570, bed 2, resting in bed, comfortable, in no acu te distress. His leg is bandaged after a second visit to the operating room on Friday for further d ebridement. Nurses and surgical team are working on wound VAC and PICC placement was just set in his left upper extremity for long-term antibiotics. PHYSICAL EXAMINATION: GENERAL: The patient is awake, alert and clear. Sugars are being managed by insulin coverage on a s liding scale. LUNGS: Clear with good aeration. HEART: Regular. EXTREMITIES: Showed the dressed wound on the right foot, but no calf tenderness, Silvestre sign or signs of DVT. IMPRESSION: Cellulitis with foot abscess, diabetic foot. PLAN: Continuing antibiotics per infectious disease industry consultant. PICC line is in place. Later in the day, I received a call from case management. They received approval through the patient 's home personal insurance for home antibiotics and we will be working towards discharge perhaps as e mauricio as tomorrow. Raji Desai MD cc: [id number] TT: 12/21/2016 19:14:15 Confirmation # [id number] Dictation # [id number] [email or web address]
--- NOTE | 2016-12-22 11:08 | DS ---
This is a 61-year-old man who I just met for the first time, but he is known to my office. He sees b y partner for his diabetes, although the patient admits he does come to the office rather infrequentl y and is not terribly compliant in checking his sugars on a regular basis, but he does take his medic ations. He noticed an infection in the foot, which seems to have worsened. He tried some home remed ies, but symptoms worsened and odor developed. There was worsening redness, so he came to the office and was advised hospital admission. In the ER, his foot was red and swollen. He was given antibiot ics and sent to the floor. X-ray showed most compatible with an abscess and/or gas gangrene. He chloé t to the OR with Dr. Jennings for debridement of the wound soon thereafter. He was treated with antib iotics in addition to surgical followup. Infectious disease domestic travel consultant followed the patient. He was given his oral diabetes medicines as well as insulin coverage. He stayed on antibiotics through the weekend and returned to the OR on Friday after for an additional session of debridement. The feeling was that he would need long-term antibiotics, so a PICC line was placed. The patient wa s instructed again and again about the importance of diabetes and followup. I explained to him that he will be a frequent flier in the office, that he will need to be coming on a more regular basis to keep his sugar under control and prevent episodes like this from ever happening again. I was in clos e communication with caseworkers and discharge planners, public health social worker, who were wonderful at [facility] arrangements with the patient's insurance company for home antibiotic infusion therapy. The patien t says he and his are well equipped and capable of doing this at home, so he was discharged to [facility] on Friday12/20/2016. Medications were reviewed. Oral Diflucan was ordered at the recommendation of the infectious disease domestic travel consultant for 1 month as well as IV antibiotics. Weekly CBC, chemistries and sed rate were ordered and will be done by the infusion group. I told the patient we will see sherry perez in the office in approximately 1 weeks' time. If there are any questions or problems, to contact u s or the surgeon. Instructions regarding the wound VAC were reviewed with the patient by the nursing staff and he will be in touch with the surgical team if any questions or complications arise. He wa s discharged to home. FINAL DISCHARGE DIAGNOSES: 1. Cellulitis. 2. Abscess. 3. Gas gangrene. 4. Diabetic foot ulcer. 5. Diabetes. Raji Desai MD cc: [id number] TT: 12/22/2016 11:08:06 en
--- NOTE | 2016-12-26 21:49 | OP ---
PROCEDURE DATE: 12/17/2016 The patient is admitted to the OR suite for a second debridement, the first having been done on the 08 23. Now it is the . PREOPERATIVE DIAGNOSIS: Progressive infection necrosis. POSTOPERATIVE DIAGNOSIS: Progressive infection necrosis. OPERATION PERFORMED: Debridement, both sharp and blunt with a VersaJet and placement of wound VAC. DESCRIPTION OF PROCEDURE: In the operating room, the patient was identified by name, number, procedu re, laterality, my veronica. The old drains were removed with the packing and there was some necrosis. The necrosis was sharply debrided with a scissors, scalpel followed by the VersaJet to get good viabl e tissue circumferentially. The area on the volar part on the foot was enlarged as there was a fair amount of pus there. There was also another pocket superiorly noted and this was drained and a Penro se placed. It was irrigated, dried and wound VAC placed. The patient taken to recovery room in good condition after sponge and needle counts declared correct. Raji Jennings MD cc: [id number] TT: 12/26/2016 21:48:26 jn
--- NOTE | 2016-12-27 07:54 | OP ---
PROCEDURE DATE: 12/11/2016 The patient is taken to the operating room for an infection of right leg. The patient had a swollen leg with draining ulcers with pus coming out. The CAT scan was suggestive of fascitis. DESCRIPTION OF PROCEDURE: In the operating room, the patient was identified by name, number, procedu re, laterality, my veronica. The area of the foot was examined. It was opened up, it was cultured aerob ically and anaerobically. Multiple drains were placed after the wounds were debrided, going to the d orsal and volar parts to drain all the pus. There was some pus draining superiorly and this was then closed with a [place] drain looped to itself. The foot was viable. About 4 Penroses were placed at multiple sites. The patient is anticipated to have multiple debridements and will schedule this for several days from now. The wound was dressed. The patient taken to recovery room in good condition after sponge and needle counts declared correct. Raji Jennings MD cc: [id number] TT: 12/26/2016 21:45:30 avery
--- NOTE | 2017-02-12 15:38 | OP ---
This is Dr. Jennings dictating operative patient on Leonardo Mcgrath [id number] Date of Operation : 12/11/16 Preoperative Diagnosis: Abscess of the foot Operative findings: In the operating room patient is identified by name, procedure, laterality, my veronica, his wristband and number. The right foot was prepped out using a stockinette and the appropriate drapes. Was held up and examined. The foot was cleaned, there was some draining pus from the Ibuprofen on the bottom of the foot. An incision was made on the dorsal part of the foot and multilayers of extension were found going anteriorly and towards the nolen. We also found to go laterally into the foot. This area was cleaned, cultured and irrigated with peroxide and multiple pin roses were placed. Seems to have gotten all the areas and the area was then prepped and draped in the usual manner. It was then cleaned with abdomen Krilex and an marsha bandage. The patient was taken to recovery in good condition. CAMILA
== END 2016-12-20 20:20 | disposition home or self-care (01) | DRG 853 ==
LOC: ED 15:10 → ERH 16:23 → CCU 22:15 → 5RSO 12-11 14:13
PROVIDERS: ADMIT Internal Medicine; ATTEND Internal Medicine
PROC: 3E03328 Introduction of Oxazolidinones into Peripheral Vein, Percutaneous Approach (ICD-10-PCS; 2016-12-10)
PROC: 0J9N00Z Drainage of Right Lower Leg Subcutaneous Tissue and Fascia with Drainage Device, Open Approach (ICD-10-PCS; 2016-12-11)
PROC: 0JBQ0ZZ Excision of Right Foot Subcutaneous Tissue and Fascia, Open Approach (ICD-10-PCS; principal; 2016-12-17 13:00)
PROC: 02HV33Z Insertion of Infusion Device into Superior Vena Cava, Percutaneous Approach (ICD-10-PCS; 2016-12-19)
DX: A41.9 Sepsis, unspecified organism (principal); A48.0 Gas gangrene; E13.10 Other specified diabetes mellitus with ketoacidosis without coma; N17.9 Acute kidney failure, unspecified; L03.115 Cellulitis of right lower limb; L02.611 Cutaneous abscess of right foot; R65.20 Severe sepsis without septic shock; E11.621 Type 2 diabetes mellitus with foot ulcer; L97.519 Non-pressure chronic ulcer of other part of right foot with unspecified severity; I10 Essential (primary) hypertension; E66.9 Obesity, unspecified; K59.00 Constipation, unspecified; Z79.84 Long term (current) use of oral hypoglycemic drugs; Z68.35 Body mass index [BMI] 35.0-35.9, adult; Z85.46 Personal history of malignant neoplasm of prostate; Z86.718 Personal history of other venous thrombosis and embolism; Z92.3 Personal history of irradiation; Z91.14 Patient's other noncompliance with medication regimen